=== PATIENT | male | born 1940 | race Caucasian/White ===

== ENCOUNTER 2017-11-07 16:06 | Emergency (ER) | payer MEDICARE ==
[~2017-11-07] VITALS: Ht 175.3 cm; Wt 90.0 kg
[2017-11-07 16:10] VITALS: BP 164/88; PULSE 74; RESP 16; TEMP 98.4; O2SAT 99
[2017-11-07] MEDS ORDERED: HYDR-3133 PO (16:52)
[2017-11-07] MEDS ORDERED: PLAV75TA29 PO (16:52)
[2017-11-07] MEDS ORDERED: PERM5CRE TOPICAL (17:28)
--- NOTE | 2017-11-07 17:30 | PD ---
HPI Chief Complaint: Skin Problem Time Seen by Provider: 16:53 Travel History International Travel<30 days: No Contact w/Intl Traveler<30days: No Traveled to known affect area: No History of Present Illness HPI 76y male presents to the ED with pruritic lesions to his entire body for 2 weeks. States his had similar symptoms then he started developing them on his body. He says that he has tried multiple over the counter medications and hydroxyzine without relief. Denies new soaps, medications, lotions, foods. Denies recent travel or hotel stays. Says his grandson had similar symptoms several weeks ago when his 's symptoms started and was treated with permethrin. Patient denies fever, chills. PFSH Past Medical History Cerebrovascular Accident: Yes Tetanus Vaccination: Unknown Past Surgical History Surgical History: No Previous Surgery Social History Alcohol Use: No Tobacco Use: Yes Substance Use: No Allergies-Medications (Allergen,Severity, Reaction): Coded Allergies: iodine (Verified Allergy, Severe, Hives, 11/07/17) Reported Meds & Prescriptions Reported Meds & Active Scripts Active Permethrin Topical 5% (Permethrin) 5% Cream 1 Applic TOPICAL ONCE Apply head to toe. Leave on for 8-12 hours. Rinse off in the morning. May repeat in 5-7 days. Reported Plavix (Clopidogrel Bisulfate) 75 Mg Tab 75 Mg PO DAILY Hydroxyzine HCl 25 Mg Tab 25 Mg PO BID PRN Review of Systems Except as stated in HPI: all other systems reviewed are Neg Physical Exam Narrative GENERAL: Well-developed well-nourished distress SKIN: Focused skin assessment warm/dry. Multiple papules diffusely across the body. There are excoriations without evidence of cellulitis. Multiple areas of plaques (confluence of papules) distributed across the upper extremities and trunk. Groin area deferred the request of the patient. No obvious burrows noted on hands or fingers HEAD: Atraumatic. Normocephalic. EYES: Pupils equal and round. No scleral icterus. No injection or drainage. ENT: No nasal bleeding or discharge. Mucous membranes pink and moist. NECK: Trachea midline. No JVD. MUSCULOSKELETAL: No obvious deformities. No clubbing. No cyanosis. No edema. NEUROLOGICAL: Awake and alert. No obvious cranial nerve deficits. Motor grossly within normal limits. Normal speech. PSYCHIATRIC: Appropriate mood and affect; insight and judgment normal. Data Data Last Documented VS Vital Signs Date Time Temp Pulse Resp B/P (MAP) Pulse Ox O2 Delivery O2 Flow Rate FiO2 11/07/17 17:31 11/07/17 16:10 98.4 74 16 99 Orders Orders Ed Discharge Order (11/07/17 17:30) [facility] Medical Decision Making Medical Screen Exam Complete: Yes Emergency Medical Condition: Yes Differential Diagnosis Scabies, bedbugs, cellulitis Narrative Course 76y male presents to the ED with pruritic lesions to his entire body for 2 weeks. States his had similar symptoms then he started developing them on his body. He says that he has tried multiple over the counter medications and hydroxyzine without relief. Denies new soaps, medications, lotions, foods. Denies recent travel or hotel stays. Says his grandson had similar symptoms several weeks ago when his 's symptoms started and was treated with permethrin. Patient denies fever, chills. Vital signs stable Physical exam consistent with scabies. Patient will be treated with permethrin cream. Advised patient to have the entire family treated and wash linen thoroughly. Continue hydroxyzine for pruritus. Advised patient to follow up with his primary care physician within 2-3 days. Advised to watch for signs of infection. If symptoms persist or worsen return to the emergency department. Diagnosis Primary Impression: Scabies Referrals: Primary Care Physician Additional Instructions: Ensure all members of the family are treated. Take medications as prescribed May take Benadryl or hydroxyzine for the itching and scratching. Follow-up with primary care physician within 2-3 days. If your symptoms persist or worsen return to the emergency department Scripts Permethrin Topical 5% (Permethrin Topical 5%) 5% Cream 1 APPLIC TOPICAL ONCE for Scabies, #1 TUBE 0 Refills Apply head to toe. Leave on for 8-12 hours. Rinse off in the morning. May repeat in 5-7 days. Prov: Brandon Naqvi MD 11/07/17 Disposition: 01 DISCHARGE HOME Condition: Stable Lona Calvin Nov 07, 2017 17:29
== END 2017-11-07 17:37 | disposition home or self-care (01) ==
LOC: NEPD 16:06
DX: B86 Scabies (principal); Z72.0 Tobacco use
CPT/HCPCS: 99283

== ENCOUNTER 2018-01-24 06:06 | Observation (INO) | payer MEDICARE, OTHER ==
[~2018-01-24] VITALS: Ht 175.3 cm; Wt 92.0 kg
[2018-01-24] VITALS (10 sets, daily range): BP systolic 124–173; BP diastolic 58–74; PULSE 58–109; RESP 16–20; TEMP 97.7–98.7; O2SAT 95–100
[~2018-01-24 06:06] MED LIST: HYDR-3133 PO; PERM5CRE TOPICAL; PLAV75TA29 PO
[2018-01-24] MEDS: RESP: ALBUTEROL 2.5 MG/IPRATROPIUM 0.5 MG NEB (SCH) INH (06:21)
--- NOTE | 2018-01-24 06:26 | PD ---
HPI Chief Complaint: Respiratory Distress Time Seen by Provider: 06:12 Travel History International Travel<30 days: No Contact w/Intl Traveler<30days: No Traveled to known affect area: No History of Present Illness HPI 77-year-old male with history of tobacco use, COPD, brought in by ambulance from home for evaluation of shortness of breath for 1 hour. EMS noted his saturation to be in the mid 80% on room air with moderate respiratory distress and poor air movement bilaterally. They administered 1 DuoNeb treatment and IV Solu-Medrol 125 mg, and on arrival the patient feels improved. He denies fevers , chills, cough, or recent illness. No history of DVT or PE. No chest pain. PFSH Past Medical History Cerebrovascular Accident: Yes Diminished Hearing: Yes Tetanus Vaccination: Unknown Social History Alcohol Use: No Tobacco Use: Yes Substance Use: No Allergies-Medications (Allergen,Severity, Reaction): Coded Allergies: iodine (Verified Allergy, Severe, Hives, 11/07/17) Reported Meds & Prescriptions Reported Meds & Active Scripts Active Permethrin Topical 5% (Permethrin) 5% Cream 1 Applic TOPICAL ONCE Apply head to toe. Leave on for 8-12 hours. Rinse off in the morning. May repeat in 5-7 days. Reported Plavix (Clopidogrel Bisulfate) 75 Mg Tab 75 Mg PO DAILY Hydroxyzine HCl 25 Mg Tab 25 Mg PO BID PRN Review of Systems Except as stated in HPI: all other systems reviewed are Neg Physical Exam Narrative GENERAL: Well-developed, well-nourished, elderly-appearing male, comfortable, no apparent distress. SKIN: Focused skin assessment warm/dry. HEAD: Atraumatic. Normocephalic. EYES: Pupils equal and round. No scleral icterus. No injection or drainage. ENT: Mucous membranes pink and moist. NECK: Trachea midline. No JVD. CARDIOVASCULAR: Regular rate and rhythm. No murmur appreciated. RESPIRATORY: No accessory muscle use. Clear to auscultation. Breath sounds equal bilaterally. GASTROINTESTINAL: Abdomen soft, non-tender, nondistended. MUSCULOSKELETAL: No obvious deformities. No clubbing. No cyanosis. No edema. NEUROLOGICAL: Awake and alert. No obvious cranial nerve deficits. Motor grossly within normal limits. Normal speech. PSYCHIATRIC: Appropriate mood and affect; insight and judgment normal. Data Data Last Documented VS Vital Signs Date Time Temp Pulse Resp B/P (MAP) Pulse Ox O2 Delivery O2 Flow Rate FiO2 01/24/18 06:37 101 96 Nasal Cannula 2.00 01/24/18 06:13 19 164/67 (99) 01/24/18 06:07 98.5 Orders Orders Complete Blood Count With Diff (01/24/18 06:12) Comprehensive Metabolic Panel (01/24/18 06:12) Act Partial Throm Time (Ptt) (01/24/18 06:12) Prothrombin Time / Inr (Pt) (01/24/18 06:12) Ckmb (Isoenzyme) Profile (01/24/18 06:12) Troponin I (01/24/18 06:12) Iv Access Insert/Monitor (01/24/18 06:12) Electrocardiogram (01/24/18 06:12) Ecg Monitoring (01/24/18 06:12) Oximetry (01/24/18 06:12) Oxygen Administration (01/24/18 06:12) Chest, Single Ap (01/24/18 06:12) Sodium Chloride 0.9% Flush (Ns Flush) (01/24/18 06:15) Albuterol-Ipratropium Neb (Duoneb Neb) (01/24/18 06:15) Influenzae A/B Antigen (01/24/18 06:26) Labs Laboratory Tests Test 01/24/18 06:30 White Blood Count 14.7 TH/MM3 Red Blood Count 3.44 MIL/MM3 Hemoglobin 9.5 GM/DL Hematocrit 28.4 % Mean Corpuscular Volume 82.6 FL Mean Corpuscular Hemoglobin 27.6 PG Mean Corpuscular Hemoglobin Concent 33.4 % Red Cell Distribution Width 15.5 % Platelet Count 235 TH/MM3 Mean Platelet Volume 8.9 FL Neutrophils (%) (Auto) 86.9 % Lymphocytes (%) (Auto) 6.8 % Monocytes (%) (Auto) 5.8 % Eosinophils (%) (Auto) 0.3 % Basophils (%) (Auto) 0.2 % Neutrophils # (Auto) 12.8 TH/MM3 Lymphocytes # (Auto) 1.0 TH/MM3 Monocytes # (Auto) 0.8 TH/MM3 Eosinophils # (Auto) 0.1 TH/MM3 Basophils # (Auto) 0.0 TH/MM3 CBC Comment DIFF FINAL Differential Comment MDM Medical Decision Making Medical Screen Exam Complete: Yes Emergency Medical Condition: Yes Medical Record Reviewed: Yes Differential Diagnosis COPD exacerbation, pneumonia, influenza, ACS, PE, pneumothorax Narrative Course At approximately 7:00 AM at the end of my shift the patient was signed out to oncoming provider Dr. Palm to follow-up with labs, x-ray, reassessment, and formulate a disposition. Nicho Cavazos MD Jan 24, 2018 06:26
[2018-01-24 06:45] LABS: AUTOMATED NEUTROPHIL # 12.8 TH/MM3 (1.8-7.7); BASOPHIL % 0.2 % (0.0-2.0); EOSINOPHIL # 0.1 TH/MM3 (0-0.4); EOSINOPHIL % 0.3 % (0.0-4.0); HEMATOCRIT 28.4 % (39.0-51.0); HEMOGLOBIN 9.5 GM/DL (13.0-17.0); LYMPH % 6.8 % (9.0-44.0); MEAN CELL VOLUME 82.6 FL (80.0-100.0); MEAN CORPUSCULAR HEMOGLOBIN 27.6 PG (27.0-34.0); MEAN CORPUSCULAR HGB CONC 33.4 % (32.0-36.0); MEAN PLATELET VOLUME 8.9 FL (7.0-11.0); MONO % 5.8 % (0.0-8.0); MONOCYTE # 0.8 TH/MM3 (0-0.9); NEUT % 86.9 % (16.0-70.0); PLATELET COUNT 235 TH/MM3 (150-450); RED BLOOD COUNT 3.44 MIL/MM3 (4.50-5.90); RED CELL DISTRIBUTION WIDTH 15.5 % (11.6-17.2); WHITE BLOOD COUNT 14.7 TH/MM3 (4.0-11.0)
--- NOTE | 2018-01-24 06:52 | RADRPT ---
EXAM DATE/TIME: 01/24/2018 06:23 [place] COMPARISON: No previous studies available for comparison. INDICATIONS : Shortness of breath MEDICAL HISTORY : CVA SURGICAL HISTORY : None. ENCOUNTER: Initial ACUITY: 1 day PAIN SCORE: 7/10 LOCATION: Bilateral chest FINDINGS: A single view of the chest demonstrates the lungs to be symmetrically aerated without evidence of mas s, infiltrate or effusion. No evidence of pneumothorax. The cardiomediastinal contours are unremark able. Osseous structures are intact. CONCLUSION: The lungs are clear. Yinka West MD on January 24, 2018 at 6:51 Board Certified Radiologist. This report was verified electronically.
[2018-01-24 07:05] LABS: ALBUMIN 3.8 GM/DL (3.4-5.0); ALT (GPT) 13 U/L (12-78); AST (GOT) 10 U/L (15-37); BICARBONATE 22.5 MEQ/L (21.0-32.0); BLOOD UREA NITROGEN 18 MG/DL (7-18); CALCIUM 8.5 MG/DL (8.5-10.1); CHLORIDE 109 MEQ/L (98-107); CREATININE 1.39 MG/DL (0.60-1.30); GLOMERULAR FILTRATION RATE 50 ML/MIN (>89); GLUCOSE,RANDOM 114 MG/DL (74-106); SODIUM (NA) 138 MEQ/L (136-145)
[2018-01-24 07:09] LABS: ALKALINE PHOSPHATASE 87 U/L (45-117); TOTAL BILIRUBIN ADULT 0.3 MG/DL (0.2-1.0); TOTAL PROTEIN 7.2 GM/DL (6.4-8.2); TROPONIN I LESS THAN 0.02 NG/ML (0.02-0.05)
[2018-01-24 07:18] LABS: PROTHROMBIN TIME - PATIENT 10.1 SEC (9.8-11.6)
[2018-01-24] MEDS ORDERED: CITA10TA4 PO (07:20)
[2018-01-24] MEDS ORDERED: FLUT1INH7 INH (07:20)
[2018-01-24] MEDS ORDERED: AMLO5TAB2 PO (07:20)
[2018-01-24] MEDS ORDERED: TAMS0.4C4 (07:20)
--- NOTE | 2018-01-24 07:44 | PD ---
Physical Exam Narrative Received sign out from previous team to follow up labs, CXR, and reevaluate. 77yo M with COPD and TIA here with sob that has been worst for last few days. said he woke up at 5am this morning and couldnt breathe so came to the ED. Pt was given methylprednisolone by [facility] and given duonebs x3 here. Labs reviewed, leukocytosis at 14.7. H/H low at 9.5/28.4. No baseline to compare. Troponin negative. Creatinine mildly elevated at 1.39. CXR negative. Influenza negative. Pt does not use oxygen at home. Pt reevaluated at bedside and said he still feels awful although the treatment did help. Said he has not come to the hospital for breathing problems and this is the first time. Pt is saturating well at 93% on RA. However, pt is still feeling sob so will observe with albuterol neb PRN. Discussed with Dr. Mendoza and accepted to his service. Data Data Last Documented VS Vital Signs Date Time Temp Pulse Resp B/P (MAP) Pulse Ox O2 Delivery O2 Flow Rate FiO2 01/24/18 06:37 101 96 Nasal Cannula 2.00 01/24/18 06:13 19 164/67 (99) 01/24/18 06:07 98.5 Orders Orders Complete Blood Count With Diff (01/24/18 06:12) Comprehensive Metabolic Panel (01/24/18 06:12) Act Partial Throm Time (Ptt) (01/24/18 06:12) Prothrombin Time / Inr (Pt) (01/24/18 06:12) Ckmb (Isoenzyme) Profile (01/24/18 06:12) Troponin I (01/24/18 06:12) Iv Access Insert/Monitor (01/24/18 06:12) Electrocardiogram (01/24/18 06:12) Ecg Monitoring (01/24/18 06:12) Oximetry (01/24/18 06:12) Oxygen Administration (01/24/18 06:12) Chest, Single Ap (01/24/18 06:12) Sodium Chloride 0.9% Flush (Ns Flush) (01/24/18 06:15) Albuterol-Ipratropium Neb (Duoneb Neb) (01/24/18 06:15) Influenzae A/B Antigen (01/24/18 06:26) Labs Laboratory Tests Test 01/24/18 06:30 White Blood Count 14.7 TH/MM3 Red Blood Count 3.44 MIL/MM3 Hemoglobin 9.5 GM/DL Hematocrit 28.4 % Mean Corpuscular Volume 82.6 FL Mean Corpuscular Hemoglobin 27.6 PG Mean Corpuscular Hemoglobin Concent 33.4 % Red Cell Distribution Width 15.5 % Platelet Count 235 TH/MM3 Mean Platelet Volume 8.9 FL Neutrophils (%) (Auto) 86.9 % Lymphocytes (%) (Auto) 6.8 % Monocytes (%) (Auto) 5.8 % Eosinophils (%) (Auto) 0.3 % Basophils (%) (Auto) 0.2 % Neutrophils # (Auto) 12.8 TH/MM3 Lymphocytes # (Auto) 1.0 TH/MM3 Monocytes # (Auto) 0.8 TH/MM3 Eosinophils # (Auto) 0.1 TH/MM3 Basophils # (Auto) 0.0 TH/MM3 CBC Comment DIFF FINAL Differential Comment Prothrombin Time 10.1 SEC Prothromb Time International Ratio 1.0 RATIO Activated Partial Thromboplast Time 21.2 SEC Blood Urea Nitrogen 18 MG/DL Creatinine 1.39 MG/DL Random Glucose 114 MG/DL Total Protein 7.2 GM/DL Albumin 3.8 GM/DL Calcium Level 8.5 MG/DL Alkaline Phosphatase 87 U/L Aspartate Amino Transf (AST/SGOT) 10 U/L Alanine Aminotransferase (ALT/SGPT) 13 U/L Total Bilirubin 0.3 MG/DL Sodium Level 138 MEQ/L Potassium Level 4.2 MEQ/L Chloride Level 109 MEQ/L Carbon Dioxide Level 22.5 MEQ/L Anion Gap 7 MEQ/L Estimat Glomerular Filtration Rate 50 ML/MIN Total Creatine Kinase 60 U/L Troponin I LESS THAN 0.02 NG/ML MDM Supervised Visit with YESENIA: No Diagnosis Primary Impression: COPD exacerbation Admitting Information Admitting Physician Requests: Sahra Caceres DO Jan 24, 2018 07:44
[2018-01-24] MEDS ORDERED: RESP: ALBUTEROL 1.25 MG/3 ML NEB (PRN) NEB (08:00)
[2018-01-24] MEDS: RESP: ALBUTEROL 2.5 MG/IPRATROPIUM 0.5 MG NEB (SCH) NEB ×5 (08:09→23:58)
--- NOTE | 2018-01-24 09:03 | EKG ---
Date Performed: 01/24/2018 Time Performed: 06:22:53 PTAGE: 77 years EKG: SINUS TACHYCARDIA POSSIBLE LEFT ATRIAL ENLARGEMENT ABNORMAL RHYTHM ECG NO PREVIOUS TRACING DOCTOR: Fede Prescott Interpretating Date/Time 01/24/2018 09:02:23
[2018-01-24] MEDS ORDERED: SODIUM CHLORID 0.9% 500 ML INJ 500 ML IV ONE (11:30)
--- NOTE | 2018-01-24 11:32 | HHI.HP ---
[facility] Service [facility] Primary Care Physician Daniel Patterson MD Admission Diagnosis COPD exacerbation Diagnoses: (1) COPD exacerbation Diagnosis: Principal Chief Complaint: shortness of breath Travel History International Travel<30 Days: No Contact w/Intl Traveler <30 Da: No Traveled to Known Affected Are: No History of Present Illness patient is a 77 y/o male , chronic smoker, with history of CVA, presented to ER with worsening sob. he says that he's had sob for about a month or so but it seems it's been getting worse. he denies any productive cough, fever or chills. per the ER report, his O2 sat was in mid-80's at the time of EMS arrival. he received a dose of IV solumedrol and neb treatment. at the time of my evaluation although he was feeling better but still with some sob and was on two liters of oxygen via N/C. Review of Systems Constitutional: DENIES: Fever, Weight loss, Chills, Night Sweats Eyes: DENIES: Blurred vision, Diplopia, Vision loss, Double Vision Ears, nose, mouth, throat: DENIES: Tinnitus, Vertigo, Throat pain, Epistaxis Respiratory: COMPLAINS OF: Shortness of breath, DENIES: Apneas, Cough, Snoring , Wheezing, Hemoptysis, Sputum production Cardiovascular: DENIES: Chest pain, Palpitations, Syncope, Dyspnea on Exertion , PND, Lower Extremity Edema, Orthopnea, Claudication Gastrointestinal: DENIES: Abdominal pain, Black stools, Bloody stools, Constipation, Diarrhea, Nausea, Vomiting, Difficulty Swallowing, Anorexia Genitourinary: DENIES: Urinary frequency, Urgency, Hematuria, Dysuria Musculoskeletal: DENIES: Joint pain, Muscle aches, Stiffness, Joint Swelling Integumentary: DENIES: Rash Neurologic: DENIES: Abnormal gait, Headache, Localized weakness, Paresthesias, Seizures, Speech Problems, Tremor, Poor Balance Psychiatric: DENIES: Anxiety, Confusion, Mood changes, Depression, Hallucinations, Agitation, Suicidal Ideation, Homicidal Ideation, Delusions Past Family Social History Past Medical History CVA Past Surgical History none Reported Medications Flomax norvasc breo plavix Allergies: Coded Allergies: iodine (Verified Allergy, Severe, Hives, 11/07/17) Active Ordered Medications Inpatient Medications Albuterol Sulfate (Albuterol Neb) 1.25 mg Q2HR NEB PRN NEB SHORTNESS OF BREATH ; Start 01/24/18 at 08:00 Albuterol/ Ipratropium (Duoneb Neb) 1 ampule Q4HR NEB NEB Last administered on 01/24/18at 08:09; Start 01/24/18 at 08:00 Sodium Chloride (NS Flush) 2 ml UNSCH PRN IVF FLUSH AFTER USING IV ACCESS; Start 01/24/18 at 06:15 Family History not significant. Social History smokes half a pack a day. drinks occasionally. Physical Exam Vital Signs Vital Signs Date Time Temp Pulse Resp B/P (MAP) Pulse Ox O2 Delivery O2 Flow Rate FiO2 01/24/18 10:47 97.7 100 20 128/63 (84) 99 01/24/18 10:18 01/24/18 06:37 101 96 Nasal Cannula 2.00 01/24/18 06:13 104 19 164/67 (99) 95 Nasal Cannula 2.00 01/24/18 06:13 95 Nasal Cannula 2.00 01/24/18 06:07 98.5 95 20 164/67 (99) 95 Physical Exam GENERAL: This is a well-nourished, well-developed patient, in no apparent distress. SKIN: No rashes, ecchymoses or lesions. Cool and dry. HEAD: Atraumatic. Normocephalic. No temporal or scalp tenderness. EYES: Pupils equal round and reactive. Extraocular motions intact. No scleral icterus. No injection or drainage. ENT: Nose without bleeding, purulent drainage or septal hematoma. Throat without erythema, tonsillar hypertrophy or exudate. Uvula midline. Airway patent. NECK: Trachea midline. No JVD or lymphadenopathy. Supple, nontender, no meningeal signs. CARDIOVASCULAR: Regular rate and rhythm without murmurs, gallops, or rubs. RESPIRATORY: diminished air entry in bases. GASTROINTESTINAL: Abdomen soft, non-tender, nondistended. No hepato-splenomegaly , or palpable masses. No guarding. MUSCULOSKELETAL: Extremities without clubbing, cyanosis, or edema. No joint tenderness, effusion, or edema noted. No calf tenderness. Negative Homans sign bilaterally. NEUROLOGICAL: Awake and alert. Cranial nerves II through XII intact. Motor and sensory grossly within normal limits. Five out of 5 muscle strength in all muscle groups. Normal speech. Laboratory Laboratory Tests Test 01/24/18 06:30 White Blood Count 14.7 Red Blood Count 3.44 Hemoglobin 9.5 Hematocrit 28.4 Mean Corpuscular Volume 82.6 Mean Corpuscular Hemoglobin 27.6 Mean Corpuscular Hemoglobin Concent 33.4 Red Cell Distribution Width 15.5 Platelet Count 235 Mean Platelet Volume 8.9 Neutrophils (%) (Auto) 86.9 Lymphocytes (%) (Auto) 6.8 Monocytes (%) (Auto) 5.8 Eosinophils (%) (Auto) 0.3 Basophils (%) (Auto) 0.2 Neutrophils # (Auto) 12.8 Lymphocytes # (Auto) 1.0 Monocytes # (Auto) 0.8 Eosinophils # (Auto) 0.1 Basophils # (Auto) 0.0 CBC Comment DIFF FINAL Differential Comment Prothrombin Time 10.1 Prothromb Time International Ratio 1.0 Activated Partial Thromboplast Time 21.2 Blood Urea Nitrogen 18 Creatinine 1.39 Random Glucose 114 Total Protein 7.2 Albumin 3.8 Calcium Level 8.5 Alkaline Phosphatase 87 Aspartate Amino Transf (AST/SGOT) 10 Alanine Aminotransferase (ALT/SGPT) 13 Total Bilirubin 0.3 Sodium Level 138 Potassium Level 4.2 Chloride Level 109 Carbon Dioxide Level 22.5 Anion Gap 7 Estimat Glomerular Filtration Rate 50 Total Creatine Kinase 60 Troponin I LESS THAN 0.02 Date/Time Source Procedure Growth Status 01/24/18 07:05 Nasal Washing Influenza Types A,B Antigen (JAMAL) - Final Complete Result Diagram: 01/24/1862901/24/18629 Imaging Last Impressions Chest X-Ray 01/24/18 06 Signed Impressions: Service Date/Time: Wednesday, January 24, 2018 06:23 - CONCLUSION: The lungs are clear. MD Yaneth Matson VTE Risk Assessment Yaneth VTE Risk Assessment: Mod/High Risk (score >= 2) Caprini Risk Assessment Model Point Value = 1 Point Value = 2 Point Value = 3 Point Value = 5 Age 41-60 Minor surgery BMI > 25 kg/m2 Swollen legs Varicose veins or History of unexplained or recurrent spontaneous Oral contraceptives or hormone replacement Sepsis (< 1 month) Serious lung disease, including pneumonia (< 1 month) Abnormal pulmonary function Acute myocardial infarction Congestive heart failure (< 1 month) History of inflammatory bowel disease Medical patient at bed rest Age 61-74 Arthroscopic surgery Major open surgery (> 45 min) Laparoscopic surgery (> 45 min) Malignancy Confined to bed (> 72 hours) Immobilizing plaster cast Central venous access Age >= 75 History of VTE Family history of VTE Factor V Leiden Prothrombin [id number] Lupus anticoagulant Anticardiolipin antibodies Elevated serum homocysteine Heparin-induced thrombocytopenia Other congenital or acquired thrombophilia Stroke (< 1 month) Elective arthroplasty Hip, pelvis, or leg fracture Acute spinal cord injury (< 1 month) Prophylaxis Regimen Total Risk Factor Score Risk Level Prophylaxis Regimen 0-1 Low Early ambulation 2 Moderate Order ONE of the following: *Sequential Compression Device (SCD) *Heparin 5000 units SQ BID 3-4 Higher Order ONE of the following medications: *Heparin 5000 units SQ TID *Enoxaparin/Lovenox 40 mg SQ daily (WT < 150 kg, CrCl > 30 mL/min) *Enoxaparin/Lovenox 30 mg SQ daily (WT < 150 kg, CrCl > 10-29 mL/min) *Enoxaparin/Lovenox 30 mg SQ BID (WT < 150 kg, CrCl > 30 mL/min) AND/OR *Sequential Compression Device (SCD) 5 or more Highest Order ONE of the following medications: *Heparin 5000 units SQ TID (Preferred with Epidurals) *Enoxaparin/Lovenox 40 mg SQ daily (WT < 150 kg, CrCl > 30 mL/min) *Enoxaparin/Lovenox 30 mg SQ daily (WT < 150 kg, CrCl > 10-29 mL/min) *Enoxaparin/Lovenox 30 mg SQ BID (WT < 150 kg, CrCl > 30 mL/min) AND *Sequential Compression Device (SCD) Assessment and Plan Assessment and Plan A/P - COPD exacerbation will taper down oxygen to keep O2 sat > 90%- continue with IV steroid and neb treatment. walk test before discharge. -renal insufficiency with unknown duration- strat on gentle IV hydration; BMP tomorrow. -anemia- no previous labs to compare- check iron panel and stool for blood- repeat CBC tomorrow. -hypertension/ history of CVA; resume home meds -DVT prophylaxis; SCD's Discussed Condition With ER physician and the patient. Calixto Recinos MD Jan 24, 2018 11:31
[2018-01-24] MEDS ORDERED: ACETAMINOPHEN 325 MG TAB PO PRN (11:45)
[2018-01-24] MEDS: FLUTICASONE 200 MCG/VILANTEROL 25 MCG INHALER INH SCH (12:48)
[2018-01-24] MEDS: CLOPIDOGREL 75 MG TAB PO SCH (12:49)
[2018-01-24] MEDS: amLODIPine BESYLATE 5 MG TAB PO SCH (12:49)
[2018-01-24] MEDS: CITALOPRAM HYDROBROMIDE 20 MG TAB PO SCH (12:49)
[2018-01-24] MEDS: methylPREDNISolone SOD SUCC 40 MG/1 ML VIAL IV PUSH SCH ×2 (12:49→21:52)
[2018-01-24 14:08] LABS: % SATURATION IRON PROFILE 5.9 % (20-50); FERRITIN 9 NG/ML (26-388); IRON (FE) 28 MCG/DL (65-175); TOTAL IRON BINDING CAPACITY 472 MCG/DL (250-450)
[2018-01-24] MEDS: TAMSULOSIN HCL 0.4 MG CAP PO SCH (21:53)
--- NOTE | 2018-01-24 22:56 | HHI.PR ---
Subjective Remarks NOT SEEN Objective Vitals Vital Signs Date Time Temp Pulse Resp B/P (MAP) Pulse Ox O2 Delivery O2 Flow Rate FiO2 01/24/18 20:30 135/61 (85) 01/24/18 19:46 97 Nasal Cannula 1.00 01/24/18 19:12 98.7 58 17 124/73 (90) 100 01/24/18 16:42 98.7 101 18 152/67 (95) 96 01/24/18 11:31 98.2 96 20 127/58 (81) 99 01/24/18 11:22 98 Nasal Cannula 2.00 01/24/18 10:47 97.7 100 20 128/63 (84) 99 01/24/18 10:18 01/24/18 06:37 101 96 Nasal Cannula 2.00 01/24/18 06:13 104 19 164/67 (99) 95 Nasal Cannula 2.00 01/24/18 06:13 95 Nasal Cannula 2.00 01/24/18 06:07 98.5 95 20 164/67 (99) 95 I/O 01/23/18 01/23/18 01/23/18 01/24/18 01/24/18 01/24/18 07:00 15:00 23:00 07:00 15:00 23:00 Output Total 475 ml Balance -475 ml Output Urine Total 475 ml Result Diagram: 01/24/18 0630 01/24/18 0630 Imaging Last Impressions Chest X-Ray 01/24/18 0612 Signed Impressions: Service Date/Time: Wednesday, January 24, 2018 06:23 - CONCLUSION: The lungs are clear. Yinka West MD Objective Remarks GENERAL: This is a well-nourished, well-developed patient, in no apparent distress. SKIN: No rashes, ecchymoses or lesions. Cool and dry. HEAD: Atraumatic. Normocephalic. No temporal or scalp tenderness. EYES: Pupils equal round and reactive. Extraocular motions intact. No scleral icterus. No injection or drainage. ENT: Nose without bleeding, purulent drainage or septal hematoma. Throat without erythema, tonsillar hypertrophy or exudate. Uvula midline. Airway patent. NECK: Trachea midline. No JVD or lymphadenopathy. Supple, nontender, no meningeal signs. CARDIOVASCULAR: Regular rate and rhythm without murmurs, gallops, or rubs. RESPIRATORY: diminished air entry in bases. GASTROINTESTINAL: Abdomen soft, non-tender, nondistended.No guarding. MUSCULOSKELETAL: Extremities without clubbing, cyanosis, or edema. No joint tenderness, effusion, or edema noted. No calf tenderness. Negative Homans sign bilaterally. NEUROLOGICAL: Awake and alert. Cranial nerves II through XII intact. Motor and sensory grossly within normal limits. Five out of 5 muscle strength in all muscle groups. Normal speech. A/P Problem List: (1) COPD exacerbation ICD Code: J44.1 - Chronic obstructive pulmonary disease with (acute) exacerbation Status: Acute Assessment and Plan COPD exacerbation with hypoxia will taper down oxygen to keep O2 sat > 90%- continue with IV steroid and neb treatment. walk test before discharge. RAS vs CKD with unknown duration- on gentle IV hydration; BMP to be monitored Anemia- no previous labs to compare- check iron panel and stool for blood- repeat CBC Hypertension/ history of CVA; resume home meds DVT prophylaxis; SCD's Arsenio Hoang MD Jan 24, 2018 22:56
[2018-01-25] VITALS (8 sets, daily range): BP systolic 137–160; BP diastolic 63–70; PULSE 86–97; RESP 16–22; TEMP 97.3–98.3; O2SAT 94–99
[2018-01-25] MEDS: RESP: ALBUTEROL 2.5 MG/IPRATROPIUM 0.5 MG NEB (SCH) NEB ×2 (03:56→07:18)
[2018-01-25] MEDS: methylPREDNISolone SOD SUCC 40 MG/1 ML VIAL IV PUSH SCH (05:26)
[2018-01-25 07:06] LABS: AUTOMATED NEUTROPHIL # 17.3 TH/MM3 (1.8-7.7); BASOPHIL % 0.2 % (0.0-2.0); HEMATOCRIT 28.1 % (39.0-51.0); HEMOGLOBIN 9.3 GM/DL (13.0-17.0); LYMPH % 4.1 % (9.0-44.0); LYMPHOCYTE # 0.8 TH/MM3 (1.0-4.8); MEAN CELL VOLUME 83.7 FL (80.0-100.0); MEAN CORPUSCULAR HEMOGLOBIN 27.6 PG (27.0-34.0); MEAN PLATELET VOLUME 9.5 FL (7.0-11.0); MONO % 3.1 % (0.0-8.0); MONOCYTE # 0.6 TH/MM3 (0-0.9); NEUT % 92.6 % (16.0-70.0); PLATELET COUNT 240 TH/MM3 (150-450); RED BLOOD COUNT 3.36 MIL/MM3 (4.50-5.90); WHITE BLOOD COUNT 18.7 TH/MM3 (4.0-11.0)
[2018-01-25 07:41] LABS: BICARBONATE 19.5 MEQ/L (21.0-32.0); CALCIUM 9.1 MG/DL (8.5-10.1); CREATININE 1.6 MG/DL (0.60-1.30); MAGNESIUM 2.2 MG/DL (1.5-2.5)
[2018-01-25] MEDS: amLODIPine BESYLATE 5 MG TAB PO SCH (08:35)
[2018-01-25] MEDS: CITALOPRAM HYDROBROMIDE 20 MG TAB PO SCH (08:36)
[2018-01-25] MEDS: SODIUM CHLORIDE 0.9% FLUSH 10 ML FLUSH IVF PRN (08:36)
[2018-01-25] MEDS: CLOPIDOGREL 75 MG TAB PO SCH (08:36)
[2018-01-25] MEDS ORDERED: LEVOFLOXACIN 750 MG PREMIX INJ 150 ML IV SCH (09:00)
[2018-01-25] MEDS: FLUTICASONE 200 MCG/VILANTEROL 25 MCG INHALER INH SCH (10:59)
--- NOTE | 2018-01-25 12:40 | HHI.PR ---
Subjective Remarks Follow-up COPD. Improving but still with significant dyspnea on exertion. Reports of tremors. Discussed with nursing Objective Vitals Vital Signs Date Time Temp Pulse Resp B/P (MAP) Pulse Ox O2 Delivery O2 Flow Rate FiO2 01/25/18 11:22 97.7 91 16 137/63 (87) 97 01/25/18 07:20 Nasal Cannula 1.00 01/25/18 07:13 97.5 87 20 154/69 (97) 99 01/25/18 04:17 97.3 90 16 143/64 (90) 97 01/25/18 00:06 97.6 97 16 148/66 (93) 98 01/24/18 20:30 135/61 (85) 01/24/18 19:46 97 Nasal Cannula 1.00 01/24/18 19:12 98.7 58 17 124/73 (90) 100 01/24/18 16:42 98.7 101 18 152/67 (95) 96 I/O 01/24/18 01/24/18 01/24/18 01/25/18 01/25/18 01/25/18 07:00 15:00 23:00 07:00 15:00 23:00 Output Total 475 ml Balance -475 ml Output Urine Total 475 ml Result Diagram: 01/25/18 0553 01/25/18 0553 Imaging Last Impressions Chest X-Ray 01/24/18 0612 Signed Impressions: Service Date/Time: Wednesday, January 24, 2018 06:23 - CONCLUSION: The lungs are clear. Yinka West MD Objective Remarks GENERAL: This is a well-nourished, well-developed patient, in no apparent distress. SKIN: No rashes, ecchymoses or lesions. Cool and dry. CARDIOVASCULAR: Regular rate and rhythm without murmurs, gallops, or rubs. RESPIRATORY: diminished air entry in bases. GASTROINTESTINAL: Abdomen soft, non-tender, nondistended.No guarding. MUSCULOSKELETAL: Extremities without clubbing, cyanosis, or edema. No joint tenderness, effusion, or edema noted. No calf tenderness. Negative Homans sign bilaterally. NEUROLOGICAL: Awake and alert. Cranial nerves II through XII intact. Motor and sensory grossly within normal limits. Five out of 5 muscle strength in all muscle groups. Normal speech. Tremors noted Procedures none A/P Problem List: (1) COPD exacerbation ICD Code: J44.1 - Chronic obstructive pulmonary disease with (acute) exacerbation Status: Acute Assessment and Plan COPD exacerbation with hypoxia. Improving but still with significant dyspnea on exertion. Continue oxygen, nebulization, steroids and start Levaquin. Increase activity as tolerated. Walk test. Tremors likely secondary to adverse reaction from beta agonist. Discontinue scheduled albuterol nebulization. Continue Atrovent nebulization RAS vs CKD with unknown duration. Worsening in this is likely secondary to steroids with acidosis. Restart gentle IV hydration BMP to be monitored Anemia- no previous labs to compare-has iron deficiency anemia repeat CBC and Hemoccult stools. This could be related to kidney disease versus occult blood loss. Hypertension/ history of CVA; resume home meds DVT prophylaxis; SCD's Discharge Planning Possible discharge in 1-2 days pending PT eval and walk test Arsenio Hoang MD Jan 25, 2018 12:40
[2018-01-25] MEDS ORDERED: RESP: ALBUTEROL 0.63 MG/3 ML NEB (PRN) NEB (15:45)
[2018-01-25] MEDS ORDERED: SODIUM CHLOR 0.9% 1000 ML INJ 1,000 ML IV SCH (16:00)
[2018-01-25] MEDS ORDERED: RESP: ALBUTEROL 0.63 MG/3 ML NEB (SCH) NEB (16:00)
[2018-01-25] MEDS: predniSONE 20 MG TAB PO SCH (16:08)
[2018-01-25] MEDS: RESP: IPRATROPIUM 0.5 MG/2.5 ML NEB NEB SCH ×2 (16:28→20:00)
[2018-01-25] MEDS ORDERED: methylPREDNISolone SOD SUCC 40 MG/1 ML VIAL IV PUSH SCH (18:00)
[2018-01-25] MEDS: TAMSULOSIN HCL 0.4 MG CAP PO SCH (20:29)
[2018-01-26] VITALS (8 sets, daily range): BP systolic 153–169; BP diastolic 69–79; PULSE 69–83; RESP 16–20; TEMP 97.5–98.1; O2SAT 95–98
[2018-01-26] MEDS: RESP: IPRATROPIUM 0.5 MG/2.5 ML NEB NEB SCH ×4 (03:25→21:46)
[2018-01-26] MEDS: RESP: ALBUTEROL 2.5 MG/IPRATROPIUM 0.5 MG NEB (SCH) NEB (07:32)
[2018-01-26] MEDS: CITALOPRAM HYDROBROMIDE 20 MG TAB PO SCH (10:06)
[2018-01-26] MEDS: predniSONE 20 MG TAB PO SCH (10:06)
[2018-01-26] MEDS: FLUTICASONE 200 MCG/VILANTEROL 25 MCG INHALER INH SCH (10:06)
[2018-01-26] MEDS: CLOPIDOGREL 75 MG TAB PO SCH (10:07)
[2018-01-26] MEDS: amLODIPine BESYLATE 5 MG TAB PO SCH (10:07)
[2018-01-26] MEDS ORDERED: SENNOSIDES 8.6 MG TAB PO PRN (11:00)
[2018-01-26] MEDS ORDERED: BISACODYL 10 MG SUPP RECTAL PRN (11:00)
[2018-01-26] MEDS ORDERED: MAGNESIUM HYDROXIDE SUSP 30 ML CUP PO PRN (11:00)
[2018-01-26] MEDS ORDERED: FLUT1INH7 INH (11:04)
[2018-01-26] MEDS ORDERED: PRED20 PO (11:04)
[2018-01-26] MEDS ORDERED: LEVA750T9 PO (11:04)
[2018-01-26] MEDS: DOCUSATE SODIUM 50 MG/SENNA 8.6 MG TAB PO SCH ×2 (12:20→21:00)
[2018-01-26] MEDS ORDERED: NEBULIZER1 MI1 (13:26)
[2018-01-26] MEDS ORDERED: Ipratropium Bromide NEB (13:28)
[2018-01-26] MEDS ORDERED: ALBU0.63 NEB (13:28)
--- NOTE | 2018-01-26 13:29 | HHI.DCPOC ---
Discharge Care Plan Diagnosis: (1) COPD exacerbation Goals to Promote Your Health * To prevent worsening of your condition and complications * To maintain your health at the optimal level Directions to Meet Your Goals Take your medications as prescribed Follow your dietary instruction Follow activity as directed Keep your appointments as scheduled Take your immunizations and boosters as scheduled If your symptoms worsen call your PCP, if no PCP go to Urgent Care Center or Emergency Room Smoking is Dangerous to Your Health. Avoid second hand smoke Call the 24-hour hour crisis hotline for domestic abuse at Vicki Johnson PA-C Jan 26, 2018 13:29
[2018-01-26] MEDS ORDERED: VENTAER INH (13:32)
--- NOTE | 2018-01-26 13:57 | HHI.PR ---
Objective Vitals Vital Signs Date Time Temp Pulse Resp B/P (MAP) Pulse Ox O2 Delivery O2 Flow Rate FiO2 01/26/18 11:32 97.7 76 16 155/73 (100) 97 01/26/18 08:34 97.7 71 16 168/79 (108) 97 01/26/18 07:34 98 21 01/26/18 04:43 97.5 69 16 153/69 (97) 97 01/26/18 00:53 97.9 83 20 162/69 (100) 95 01/25/18 22:19 98.3 86 16 149/66 (93) 95 01/25/18 20:34 97.9 88 16 160/70 (100) 96 01/25/18 20:04 96 21.00 01/25/18 15:03 97.9 88 22 148/70 (96) 94 I/O 01/25/18 01/25/18 01/25/18 01/26/18 01/26/18 01/26/18 07:00 15:00 23:00 07:00 15:00 23:00 Intake Total 600 ml 500 ml Output Total 600 ml Balance 0 ml 500 ml Intake Oral 600 ml 500 ml Output Urine Total 600 ml Result Diagram: 01/25/18 0553 01/25/18 0553 Objective Remarks GENERAL: This is a well-nourished, well-developed patient, in no apparent distress. SKIN: No rashes, ecchymoses or lesions. Cool and dry. CARDIOVASCULAR: Regular rate and rhythm without murmurs, gallops, or rubs. RESPIRATORY: diminished air entry in bases. GASTROINTESTINAL: Abdomen soft, non-tender, nondistended.No guarding. MUSCULOSKELETAL: Extremities without clubbing, cyanosis, or edema. No joint tenderness, effusion, or edema noted. No calf tenderness. Negative Homans sign bilaterally. NEUROLOGICAL: Awake and alert. Cranial nerves II through XII intact. Motor and sensory grossly within normal limits. Five out of 5 muscle strength in all muscle groups. Normal speech. Tremors noted Procedures none A/P Problem List: (1) COPD exacerbation ICD Code: J44.1 - Chronic obstructive pulmonary disease with (acute) exacerbation Status: Acute Assessment and Plan COPD exacerbation with hypoxia. Improving but still with significant dyspnea on exertion. Continue oxygen, nebulization, steroids and start Levaquin. Increase activity as tolerated. Walk test. Tremors likely secondary to adverse reaction from beta agonist. Discontinue scheduled albuterol nebulization. Continue Atrovent nebulization RAS vs CKD with unknown duration. Worsening in this is likely secondary to steroids with acidosis. Restart gentle IV hydration BMP to be monitored Anemia- no previous labs to compare-has iron deficiency anemia repeat CBC and Hemoccult stools. This could be related to kidney disease versus occult blood loss. Hypertension/ history of CVA; resume home meds DVT prophylaxis; SCD's Discharge Planning Possible discharge in 1-2 days pending PT eval and walk test Arsenio Hoang MD Jan 26, 2018 13:57
[2018-01-26 14:34] LABS: HEMATOCRIT 27.8 % (39.0-51.0)
[2018-01-26 15:17] LABS: BICARBONATE 24.2 MEQ/L (21.0-32.0); CALCIUM 8.7 MG/DL (8.5-10.1); CREATININE 1.28 MG/DL (0.60-1.30); MAGNESIUM 2.5 MG/DL (1.5-2.5)
--- NOTE | 2018-01-26 17:42 | HHI.DS ---
Discharge Summary Admission Date Jan 24, 2018 at 08:01 Discharge Date: Jan 27, 2018 Admitting Diagnosis COPD exacerbation (1) COPD exacerbation ICD Code: J44.1 - Chronic obstructive pulmonary disease with (acute) exacerbation Diagnosis: Principal Status: Acute Procedures none Brief History - From Admission patient is a 77 y/o male , chronic smoker, with history of CVA, presented to ER with worsening sob. he says that he's had sob for about a month or so but it seems it's been getting worse. he denies any productive cough, fever or chills. per the ER report, his O2 sat was in mid-80's at the time of EMS arrival. he received a dose of IV solumedrol and neb treatment. at the time of my evaluation although he was feeling better but still with some sob and was on two liters of oxygen via N/C. CBC/BMP: 01/26/18 1410 01/26/18 1410 Significant Findings Laboratory Tests Test 01/24/18 06:30 01/25/18 05:53 01/26/18 14:10 White Blood Count 14.7 TH/MM3 (4.0-11.0) 18.7 TH/MM3 (4.0-11.0) Red Blood Count 3.44 MIL/MM3 (4.50-5.90) 3.36 MIL/MM3 (4.50-5.90) Hemoglobin 9.5 GM/DL (13.0-17.0) 9.3 GM/DL (13.0-17.0) 9.0 GM/DL (13.0-17.0) Hematocrit 28.4 % (39.0-51.0) 28.1 % (39.0-51.0) 27.8 % (39.0-51.0) Neutrophils (%) (Auto) 86.9 % (16.0-70.0) 92.6 % (16.0-70.0) Lymphocytes (%) (Auto) 6.8 % (9.0-44.0) 4.1 % (9.0-44.0) Neutrophils # (Auto) 12.8 TH/MM3 (1.8-7.7) 17.3 TH/MM3 (1.8-7.7) Activated Partial Thromboplast Time 21.2 SEC (24.3-30.1) Creatinine 1.39 MG/DL (0.60-1.30) 1.60 MG/DL (0.60-1.30) Random Glucose 114 MG/DL (74-106) 146 MG/DL (74-106) 117 MG/DL (74-106) Aspartate Amino Transf (AST/SGOT) 10 U/L (15-37) Chloride Level 109 MEQ/L (98-107) 108 MEQ/L (98-107) 108 MEQ/L (98-107) Estimat Glomerular Filtration Rate 50 ML/MIN (>89) 42 ML/MIN (>89) 55 ML/MIN (>89) Iron Level 28 MCG/DL (65-175) Total Iron Binding Capacity 472 MCG/DL (250-450) Percent Iron Saturation 5.9 % (20-50) Ferritin 9 NG/ML (26-388) Troponin I LESS THAN 0.02 NG/ML Lymphocytes # (Auto) 0.8 TH/MM3 (1.0-4.8) Blood Urea Nitrogen 30 MG/DL (7-18) 32 MG/DL (7-18) Carbon Dioxide Level 19.5 MEQ/L (21.0-32.0) Imaging Last Impressions Chest X-Ray 01/24/18 0612 Signed Impressions: Service Date/Time: Wednesday, January 24, 2018 06:23 - CONCLUSION: The lungs are clear. Yinka West MD PE at Discharge GENERAL: This is a well-nourished, well-developed patient, in no apparent distress. SKIN: No rashes, ecchymoses or lesions. Cool and dry. CARDIOVASCULAR: Regular rate and rhythm without murmurs, gallops, or rubs. RESPIRATORY: diminished air entry in bases. GASTROINTESTINAL: Abdomen soft, non-tender, nondistended.No guarding. MUSCULOSKELETAL: Extremities without clubbing, cyanosis, or edema. No joint tenderness, effusion, or edema noted. No calf tenderness. Negative Homans sign bilaterally. NEUROLOGICAL: Awake and alert. Cranial nerves II through XII intact. Motor and sensory grossly within normal limits. Five out of 5 muscle strength in all muscle groups. Normal speech. Tremors resolved Hospital Course COPD exacerbation with hypoxia. Improving. One episode of sputum admixed with small amount of dark blood. Continue oxygen prn, nebulization, steroids and Levaquin. Increase activity as tolerated. Passed Walk test. Tremors likely secondary to adverse reaction from beta agonist. Discontinued scheduled albuterol nebulization. Resolved. Continue Atrovent nebulization RAS. Improved with gentle IV hydration BMP to be monitored Anemia- no previous labs to compare-has iron deficiency anemia. This could be related to kidney disease versus occult blood loss. Stable but + guaiac. No gross active bleeding. Patient wants to go home and will f/u with GI for cscope outpatient. Start iron Hypertension/ history of CVA; BP elevated likely secondary to steroids we will increase Norvasc DVT prophylaxis; SCD's Pt Condition on Discharge: Stable Discharge Disposition: Discharge Home Discharge Time: > 30 minutes Discharge Instructions DIET: Follow Instructions for: Heart Healthy Diet Speech Therapy-Diet Recommends: Chopped Meat w/Gravy Activities you can perform: Regular-No Restrictions Follow up Referrals: Gastroenterology - 1 Week PCP Follow-up - 1 Week with Daneil Patterson MD New Orders: BASIC METABOLIC PROF - 1 Week CBC NO DIFF - 1 Week New Medications: Albuterol 18 GM Inh (Ventolin Hfa 18 GM Inh) 90 Mcg/Act Aer 2 PUFF INH Q4-6H PRN for SHORTNESS OF BREATH, #1 INHALER 0 Refills Amlodipine (Norvasc) 10 Mg Tab 10 MG PO DAILY for Blood Pressure Management, #30 TAB 0 Refills Ferrous Sulfate (Ferrous Sulfate) 325 Mg (65 Mg Iron) Tablet 325 MG PO BIDPC for Nutritional Supplement, #60 TAB 0 Refills Nebulizer (Nebulizer) 1 Mis Mis EA .XX DIRECTED for Breathing Treatment, #1 0 Refills Albuterol Neb (Albuterol Neb) 0.63 Mg/3 Ml Neb 0.63 MG NEB Q6HR NEB PRN for SHORTNESS OF BREATH, #100 NEBULE Levofloxacin (Levaquin) 750 Mg Tablet 750 MG PO Q48H for Infection, #3 TAB Start on 01/27. Take every other day. Prednisone (Prednisone) 20 Mg Tab 40 MG PO DAILY for COPD for 5 Days, #10 TAB [Ipratropium [place]] () 0.5 MG/2.5 ML NEBU 0.5 MG NEB Q6HR NEB for COPD, #120 NEBULE Continued Medications: Citalopram (Citalopram) 10 Mg Tab 10 MG PO DAILY for Control Depression, #30 TAB 0 Refills Clopidogrel (Plavix) 75 Mg Tab 75 MG PO DAILY for Blood Clot Prevention, #30 TAB 0 Refills Fluticasone-Vilanterol Inh (Breo Ellipta Inh) 200-25 Mcg/Act Inh 1 PUFF INH DAILY for COPD, #1 INHALER 0 Refills (This prescription has been renewed) Use daily at the same time. Tamsulosin (Tamsulosin) 0.4 Mg Cap 0.4 MG HS for Manage Prostate Problems, #30 CAP 0 Refills Discontinued Medications: Amlodipine (Amlodipine) 5 Mg Tab 5 MG PO DAILY for Blood Pressure Management, #30 TAB 0 Refills Arsenio Hoang MD Jan 26, 2018 17:42
[2018-01-26] MEDS: TAMSULOSIN HCL 0.4 MG CAP PO SCH (21:00)
[2018-01-27 00:34] VITALS: BP 164/78; PULSE 76; RESP 16; TEMP 97.7; O2SAT 96
[2018-01-27 03:20] VITALS: BP 164/77; PULSE 77; RESP 20; TEMP 97.9; O2SAT 96
[2018-01-27] MEDS: RESP: IPRATROPIUM 0.5 MG/2.5 ML NEB NEB SCH ×2 (03:44→11:42)
[2018-01-27 08:18] VITALS: BP 181/85; PULSE 76; RESP 20; TEMP 97.7; O2SAT 97
[2018-01-27] MEDS: FLUTICASONE 200 MCG/VILANTEROL 25 MCG INHALER INH SCH (08:41)
[2018-01-27] MEDS: predniSONE 20 MG TAB PO SCH (08:41)
[2018-01-27] MEDS: CLOPIDOGREL 75 MG TAB PO SCH (08:41)
[2018-01-27] MEDS: DOCUSATE SODIUM 50 MG/SENNA 8.6 MG TAB PO SCH (08:41)
--- NOTE | 2018-01-27 08:41 | HHI.PR ---
Subjective Remarks Follow-up COPD. Late entry patient seen yesterday for COPD exacerbation. Improving shortness of breath. Objective Vitals Vital Signs Date Time Temp Pulse Resp B/P (MAP) Pulse Ox O2 Delivery O2 Flow Rate FiO2 01/27/18 08:18 97.7 76 20 181/85 (117) 97 01/27/18 03:20 97.9 77 20 164/77 (106) 96 01/27/18 00:34 97.7 76 16 164/78 (106) 96 01/26/18 21:48 96 21 01/26/18 19:32 98.0 81 20 169/76 (107) 96 01/26/18 14:47 98.1 79 18 169/76 (107) 97 01/26/18 11:32 97.7 76 16 155/73 (100) 97 I/O 01/26/18 01/26/18 01/26/18 01/27/18 01/27/18 01/27/18 07:00 15:00 23:00 07:00 15:00 23:00 Intake Total 500 ml 1000 ml Balance 500 ml 1000 ml Intake Oral 500 ml 1000 ml Result Diagram: 01/26/18 1410 01/26/18 1410 Objective Remarks GENERAL: This is a well-nourished, well-developed patient, in no apparent distress. SKIN: No rashes, ecchymoses or lesions. Cool and dry. CARDIOVASCULAR: Regular rate and rhythm without murmurs, gallops, or rubs. RESPIRATORY: diminished air entry in bases. GASTROINTESTINAL: Abdomen soft, non-tender, nondistended.No guarding. MUSCULOSKELETAL: Extremities without clubbing, cyanosis, or edema. No joint tenderness, effusion, or edema noted. No calf tenderness. Negative Homans sign bilaterally. NEUROLOGICAL: Awake and alert. Cranial nerves II through XII intact. Motor and sensory grossly within normal limits. Five out of 5 muscle strength in all muscle groups. Normal speech. Tremors resolved Procedures none A/P Problem List: (1) COPD exacerbation ICD Code: J44.1 - Chronic obstructive pulmonary disease with (acute) exacerbation Status: Acute Assessment and Plan COPD exacerbation with hypoxia. Improving. One episode of sputum admixed with small amount of dark blood. Continue oxygen prn, nebulization, steroids and Levaquin. Increase activity as tolerated. Passed Walk test. Tremors likely secondary to adverse reaction from beta agonist. Discontinued scheduled albuterol nebulization. Resolved. Continue Atrovent nebulization RAS vs CKD with unknown duration. Improved with gentle IV hydration BMP to be monitored Anemia- no previous labs to compare-has iron deficiency anemia repeat CBC and Hemoccult stools. This could be related to kidney disease versus occult blood loss. Stable pending guaiac. Op f/u with GI for cscope Hypertension/ history of CVA; resume home meds DVT prophylaxis; SCD's Discharge Planning Possible discharge in 1-2 days pending PT eval and walk test Arsenio Hoang MD Jan 27, 2018 08:41
[2018-01-27] MEDS: SODIUM CHLORIDE 0.9% FLUSH 10 ML FLUSH IVF PRN (08:42)
[2018-01-27] MEDS: CITALOPRAM HYDROBROMIDE 20 MG TAB PO SCH (08:42)
[2018-01-27] MEDS: amLODIPine BESYLATE 5 MG TAB PO SCH (08:42)
--- NOTE | 2018-01-27 08:43 | HHI.PR ---
Subjective Remarks Follow-up anemia. Discharge held yesterday secondary to guaiac positive stool. Denies dizziness. Wants to go home will f/u with GI for endoscopy Objective Vitals Vital Signs Date Time Temp Pulse Resp B/P (MAP) Pulse Ox O2 Delivery O2 Flow Rate FiO2 01/27/18 08:18 97.7 76 20 181/85 (117) 97 01/27/18 03:20 97.9 77 20 164/77 (106) 96 01/27/18 00:34 97.7 76 16 164/78 (106) 96 01/26/18 21:48 96 21 01/26/18 19:32 98.0 81 20 169/76 (107) 96 01/26/18 14:47 98.1 79 18 169/76 (107) 97 01/26/18 11:32 97.7 76 16 155/73 (100) 97 I/O 01/26/18 01/26/18 01/26/18 01/27/18 01/27/18 01/27/18 07:00 15:00 23:00 07:00 15:00 23:00 Intake Total 500 ml 1000 ml Balance 500 ml 1000 ml Intake Oral 500 ml 1000 ml Result Diagram: 01/26/18 1410 01/26/18 1410 Imaging Last Impressions Chest X-Ray 01/24/18 0612 Signed Impressions: Service Date/Time: Wednesday, January 24, 2018 06:23 - CONCLUSION: The lungs are clear. Yinka West MD Objective Remarks GENERAL: This is a well-nourished, well-developed patient, in no apparent distress. SKIN: No rashes, ecchymoses or lesions. Cool and dry. CARDIOVASCULAR: Regular rate and rhythm without murmurs, gallops, or rubs. RESPIRATORY: diminished air entry in bases. GASTROINTESTINAL: Abdomen soft, non-tender, nondistended.No guarding. MUSCULOSKELETAL: Extremities without clubbing, cyanosis, or edema. No joint tenderness, effusion, or edema noted. No calf tenderness. Negative Homans sign bilaterally. NEUROLOGICAL: Awake and alert. Cranial nerves II through XII intact. Motor and sensory grossly within normal limits. Five out of 5 muscle strength in all muscle groups. Normal speech. Tremors resolved Procedures none A/P Problem List: (1) COPD exacerbation ICD Code: J44.1 - Chronic obstructive pulmonary disease with (acute) exacerbation Status: Acute Assessment and Plan COPD exacerbation with hypoxia. Improving. One episode of sputum admixed with small amount of dark blood. Continue oxygen prn, nebulization, steroids and Levaquin. Increase activity as tolerated. Passed Walk test. Tremors likely secondary to adverse reaction from beta agonist. Discontinued scheduled albuterol nebulization. Resolved. Continue Atrovent nebulization RAS. Improved with gentle IV hydration BMP to be monitored Anemia- no previous labs to compare-has iron deficiency anemia. This could be related to kidney disease versus occult blood loss. Stable but + guaiac. No gross active bleeding. Patient wants to go home and will f/u with GI for cscope outpatient. Start iron Hypertension/ history of CVA; BP elevated likely secondary to steroids we will increase Norvasc DVT prophylaxis; SCD's Discharge Planning Stable for discharge Arsenio Hoang MD Jan 27, 2018 08:43
[2018-01-27 10:28] VITALS: BP 173/80; PULSE 67; RESP 20; O2SAT 97
[2018-01-27 10:56] LABS: HEMOGLOBIN 9.3 GM/DL (13.0-17.0)
[2018-01-27] MEDS ORDERED: AMLO10 PO (11:23)
[2018-01-27] MEDS ORDERED: amLODIPine BESYLATE 5 MG TAB PO ONE (11:30)
[2018-01-27 11:44] VITALS: O2SAT 99
[2018-01-27 12:03] VITALS: BP 164/75
[2018-01-27] MEDS ORDERED: FERR325T18 PO (14:09)
[2018-01-27] MEDS ORDERED: LEVOFLOXACIN 750 MG TAB PO SCH (15:00)
== END 2018-01-27 13:54 | disposition home or self-care (01) ==
LOC: NEPC 06:06 → NEDA 08:01 → NEPFCDU 10:22 → NEPGCP 17:25
PROVIDERS: ADMIT Internal Medicine; ATTEND Internal Medicine
DX: J44.1 Chronic obstructive pulmonary disease with (acute) exacerbation (principal); R06.03 Acute respiratory distress; R09.02 Hypoxemia; D64.9 Anemia, unspecified; I10 Essential (primary) hypertension; R00.0 Tachycardia, unspecified; D72.829 Elevated white blood cell count, unspecified; R79.89 Other specified abnormal findings of blood chemistry; H91.90 Unspecified hearing loss, unspecified ear; F17.200 Nicotine dependence, unspecified, uncomplicated; Z79.02 Long term (current) use of antithrombotics/antiplatelets; Z86.73 Personal history of transient ischemic attack (TIA), and cerebral infarction without residual deficits
CPT/HCPCS: 71045; 80048; 80053; 82272; 82550; 82728; 83540; 83550; 83735; 84484; 85014; 85018; 85025; 85610; 85730; 87804; 93005; 94640; 94664; 96361; 96365; 96366; 96375; 96376; 97161; 99285; G0378; G8987; G8988; J1956; J2920; J7030; J7040; J7512; J7613; J7644

== ENCOUNTER 2018-05-01 03:41 | Inpatient (IN) | payer MEDICARE, OTHER ==
[2018-05-01] VITALS (17 sets, daily range): BP systolic 126–209; BP diastolic 69–88; PULSE 58–102; RESP 16–20; TEMP 97–98.8; O2SAT 92–100
[~2018-05-01] VITALS: Ht 175.3 cm; Wt 127.9 kg
[~2018-05-01 03:41] MED LIST changes: +ALBU0.63 NEB; +AMLO10 PO; +CITA10TA4 PO; +FERR325T18 PO; +FLUT1INH7 INH; -HYDR-3133 PO; +Ipratropium Bromide NEB; +LEVA750T9 PO; +NEBULIZER1 MI1; -PERM5CRE TOPICAL; +PRED20 PO; +TAMS0.4C4; +VENTAER INH
[2018-05-01] MEDS ORDERED: methylPREDNISolone SOD SUCC 125 MG/2 ML VIAL IV PUSH ONE (04:00)
[2018-05-01] MEDS ORDERED: OMEGCAP PO (04:03)
[2018-05-01] MEDS ORDERED: hydrALAZINE HCL 20 MG/ML VIAL IV PUSH ONE (04:15)
[2018-05-01] MEDS: RESP: ALBUTEROL 2.5 MG/IPRATROPIUM 0.5 MG NEB (SCH) INH ×2 (04:19→04:20)
--- NOTE | 2018-05-01 04:37 | RADRPT ---
EXAM DATE: 05/01/2018 4:11 AM EDT AGE/SEX: 77 years / Male INDICATIONS: Shortness of breath. CLINICAL DATA: This is the patient's initial encounter. Patient reports that signs and symptoms have been present for 1 day and indicates a pain score of 0/10. MEDICAL/SURGICAL HISTORY: Chronic obstructive pulmonary disease. Hypertension. None. COMPARISON: [facility] – [place], CHEST SINGLE AP, 01/24/2018. . FINDINGS: A single AP view of the chest demonstrates the lungs to be symmetrically aerated without evidence of mass, infiltrate or effusion. Minimal basilar atelectasis. The cardiomediastinal contours are unremarkable. Osseous structures are intact. CONCLUSION: Minimal basilar atelectasis. No dense consolidation or pleural effusion. Electronically signed by: Yann Mariano MD 05/01/2018 4:35 AM EDT
[2018-05-01 04:42] LABS: BICARBONATE 22.1 MEQ/L (21.0-32.0); BLOOD UREA NITROGEN 24 MG/DL (7-18); CALCIUM 8.8 MG/DL (8.5-10.1); CHLORIDE 113 MEQ/L (98-107); CREATININE 1.31 MG/DL (0.60-1.30); GLOMERULAR FILTRATION RATE 53 ML/MIN (>89); GLUCOSE,RANDOM 94 MG/DL (74-106); MAGNESIUM 2.3 MG/DL (1.5-2.5); SODIUM (NA) 144 MEQ/L (136-145)
[2018-05-01 04:44] LABS: AUTOMATED NEUTROPHIL # 6.4 TH/MM3 (1.8-7.7); BASOPHIL # 0.1 TH/MM3 (0-0.2); BASOPHIL % 0.7 % (0.0-2.0); EOSINOPHIL # 0.4 TH/MM3 (0-0.4); EOSINOPHIL % 4.1 % (0.0-4.0); HEMATOCRIT 22.6 % (39.0-51.0); LYMPH % 15.9 % (9.0-44.0); LYMPHOCYTE # 1.4 TH/MM3 (1.0-4.8); MEAN CELL VOLUME 67.7 FL (80.0-100.0); MEAN CORPUSCULAR HEMOGLOBIN 20.5 PG (27.0-34.0); MEAN CORPUSCULAR HGB CONC 30.3 % (32.0-36.0); MEAN PLATELET VOLUME 9.1 FL (7.0-11.0); MONO % 7.5 % (0.0-8.0); MONOCYTE # 0.7 TH/MM3 (0-0.9); NEUT % 71.8 % (16.0-70.0); PLATELET COUNT 218 TH/MM3 (150-450); RED BLOOD COUNT 3.34 MIL/MM3 (4.50-5.90); RED CELL DISTRIBUTION WIDTH 17.9 % (11.6-17.2); WHITE BLOOD COUNT 8.9 TH/MM3 (4.0-11.0)
[2018-05-01 04:46] LABS: TROPONIN I LESS THAN 0.02 NG/ML (0.02-0.05)
[2018-05-01 04:48] LABS: HEMOGLOBIN 6.8 GM/DL (13.0-17.0)
[2018-05-01] MEDS ORDERED: SODIUM CHLOR 0.9% 250 ML INJ 250 ML IV ONE ×2 (05:15→11:45)
[2018-05-01] MEDS ORDERED: PANTOPRAZOLE SODIUM 40 MG VIAL IV PUSH ONE (05:15)
--- NOTE | 2018-05-01 05:21 | PD ---
HPI Chief Complaint: Respiratory Distress Time Seen by Provider: 03:49 Travel History International Travel<30 days: No Contact w/Intl Traveler<30days: No Traveled to known affect area: No History of Present Illness HPI 77yo M with PMH of COPD and CVA here with c/o sob for a few days. said he has been having generalized fatigue for a week. +Cough. Uses oxygen at home. Denies any fever, chest pain, n/v, abdominal pain, focal weakness or numbness. PFSH Past Medical History Blood Disorders: No Cancer: No Cardiovascular Problems: No COPD: Yes Cerebrovascular Accident: Yes Diabetes: No Diminished Hearing: Yes Endocrine: No Genitourinary: No Immune Disorder: No Musculoskeletal: No Neurologic: No Psychiatric: No Respiratory: Yes Past Surgical History Other Surgery: No Social History Alcohol Use: No Tobacco Use: No Substance Use: No Allergies-Medications (Allergen,Severity, Reaction): Coded Allergies: iodine (Verified Allergy, Severe, Hives, 11/07/17) Reported Meds & Prescriptions Reported Meds & Active Scripts Active Norvasc (Amlodipine Besylate) 10 Mg Tab 10 Mg PO DAILY Ventolin Hfa 18 GM Inh (Albuterol Sulfate) 90 Mcg/Act Aer 2 Puff INH Q4-6H PRN Albuterol Neb (Albuterol Sulfate) 0.63 Mg/3 Ml Neb 0.63 Mg NEB Q6HR NEB PRN Nebulizer 1 Mis Mis Ea .XX DIRECTED Prednisone 20 Mg Tab 40 Mg PO DAILY 5 Days Breo Ellipta Inh (Fluticasone/Vilanterol) 200-25 Mcg/Act Inh 1 Puff INH DAILY Use daily at the same time. Reported [place]-3 Fish Oil/Vitamin (Fish Oil-Cholecalciferol) 1,000-1,000 Mg Cap 1 Cap PO DAILY Tamsulosin (Tamsulosin HCl) 0.4 Mg Cap 0.4 Mg HS Citalopram (Citalopram Hydrobromide) 10 Mg Tab 10 Mg PO DAILY Plavix (Clopidogrel Bisulfate) 75 Mg Tab 75 Mg PO DAILY Review of Systems Except as stated in HPI: all other systems reviewed are Neg Physical Exam Narrative GENERAL: 77yo M in mild distress. SKIN: Focused skin assessment warm/dry. HEAD: Atraumatic. Normocephalic. EYES: Pupils equal and round. No scleral icterus. No injection or drainage. ENT: No nasal bleeding or discharge. Mucous membranes pink and moist. NECK: Trachea midline. No JVD. CARDIOVASCULAR: Regular rate and rhythm. No murmur appreciated. RESPIRATORY: No accessory muscle use. Clear to auscultation. Breath sounds equal bilaterally. GASTROINTESTINAL: Abdomen soft, non-tender, nondistended. MUSCULOSKELETAL: No obvious deformities. No clubbing. No cyanosis. No edema. NEUROLOGICAL: Awake and alert. No obvious cranial nerve deficits. Motor grossly within normal limits. Normal speech. PSYCHIATRIC: Appropriate mood and affect; insight and judgment normal. Data Data Last Documented VS Vital Signs Date Time Temp Pulse Resp B/P (MAP) Pulse Ox O2 Delivery O2 Flow Rate FiO2 05/01/18 04:19 58 18 173/70 (104) 100 Nasal Cannula 2.00 05/01/18 03:45 98.4 Orders Orders Complete Blood Count With Diff (05/01/18 03:53) Basic Metabolic Panel (Bmp) (05/01/18 03:53) B-Type Natriuretic Peptide (05/01/18 03:53) Act Partial Throm Time (Ptt) (05/01/18 03:53) Prothrombin Time / Inr (Pt) (05/01/18 03:53) Magnesium (Mg) (05/01/18 03:53) Troponin I (05/01/18 03:53) Chest, Single Ap (05/01/18 03:53) Methylprednisolone So Succ Inj (Solumedr (05/01/18 04:00) Albuterol-Ipratropium Neb (Duoneb Neb) (05/01/18 04:00) Hydralazine Inj (Apresoline Inj) (05/01/18 04:15) Type And Screen (05/01/18 05:13) Blood Product Administration (05/01/18 05:13) Sodium Chlor 0.9% 250 Ml Inj (Ns 250 Ml (05/01/18 05:15) Pantoprazole Inj (Protonix Inj) (05/01/18 05:15) Labs Laboratory Tests Test 05/01/18 04:15 White Blood Count 8.9 TH/MM3 Red Blood Count 3.34 MIL/MM3 Hemoglobin 6.8 GM/DL Hematocrit 22.6 % Mean Corpuscular Volume 67.7 FL Mean Corpuscular Hemoglobin 20.5 PG Mean Corpuscular Hemoglobin Concent 30.3 % Red Cell Distribution Width 17.9 % Platelet Count 218 TH/MM3 Mean Platelet Volume 9.1 FL Neutrophils (%) (Auto) 71.8 % Lymphocytes (%) (Auto) 15.9 % Monocytes (%) (Auto) 7.5 % Eosinophils (%) (Auto) 4.1 % Basophils (%) (Auto) 0.7 % Neutrophils # (Auto) 6.4 TH/MM3 Lymphocytes # (Auto) 1.4 TH/MM3 Monocytes # (Auto) 0.7 TH/MM3 Eosinophils # (Auto) 0.4 TH/MM3 Basophils # (Auto) 0.1 TH/MM3 CBC Comment AUTO DIFF Blood Urea Nitrogen 24 MG/DL Creatinine 1.31 MG/DL Random Glucose 94 MG/DL Calcium Level 8.8 MG/DL Magnesium Level 2.3 MG/DL Sodium Level 144 MEQ/L Potassium Level 4.2 MEQ/L Chloride Level 113 MEQ/L Carbon Dioxide Level 22.1 MEQ/L Anion Gap 9 MEQ/L Estimat Glomerular Filtration Rate 53 ML/MIN Troponin I LESS THAN 0.02 NG/ML B-Type Natriuretic Peptide 165 PG/ML MDM Medical Decision Making Medical Screen Exam Complete: Yes Emergency Medical Condition: Yes Interpretation(s) EKG: NSR 63bpm. Normal axis. No ST segment elevation or depression. Differential Diagnosis Pneumonia vs. COPD exacerbation vs. CHF vs. symptomatic anemia Narrative Course 77yo M with PMH of COPD and CVA here with sob at rest for a few days. Labs reviewed, no leukocytosis. H/H low at 6.8/22.6. This is lower than baseline of 9.3/28.0 on 01/27/18. Troponin negative. BNP mildly elevated at 165. BUN/ creatinine elevated at 24/1.31 but this is baseline. CXR showed minimal basilar atelectasis. No dense consolidation or pleural effusion. Pt denies any bleeding or black stool and rectal exam showed yellow stool but hemaprompt positive. Pt given protonix and ordered 2 units of PRBC for transfusion. Discussed with Dr. Dos Santos and accepted to her service for symptomatic anemia secondary to GI bleed. HemaPrompt Point of Care Internal Pos. & Neg. Controls: Passed Fecal Specimen Occult Blood: Positive Diagnosis Primary Impression: Symptomatic anemia Additional Impression: GI bleed Qualified Codes: K92.2 - Gastrointestinal hemorrhage, unspecified Admitting Information Admitting Physician Requests: it Sahra Palm DO May 01, 2018 05:21
[2018-05-01] MEDS ORDERED: SENNOSIDES 8.6 MG TAB PO PRN (05:30)
[2018-05-01] MEDS ORDERED: RESP: ALBUTEROL 2.5 MG/IPRATROPIUM 0.5 MG NEB (PRN) NEB (05:30)
[2018-05-01] MEDS ORDERED: ACETAMINOPHEN 325 MG TAB PO PRN ×2 (05:30→11:45)
[2018-05-01] MEDS ORDERED: ACETAMINOPHEN/HYDROcodone 325 MG/5 MG TAB PO PRN (05:30)
[2018-05-01] MEDS ORDERED: METOCLOPRAMIDE HCL 10 MG/2 ML VIAL IV PUSH PRN (05:30)
[2018-05-01] MEDS ORDERED: LACTULOSE SYRUP 20 GM/30 ML CUP PO PRN (05:30)
[2018-05-01] MEDS ORDERED: MAGNESIUM HYDROXIDE SUSP 30 ML CUP PO PRN (05:30)
[2018-05-01] MEDS ORDERED: SODIUM CHLORIDE 0.9% FLUSH 10 ML FLUSH IV FLUSH PRN (05:30)
[2018-05-01] MEDS ORDERED: BISACODYL 10 MG SUPP RECTAL PRN (05:30)
[2018-05-01] MEDS: methylPREDNISolone SOD SUCC 40 MG/1 ML VIAL IV PUSH SCH ×4 (05:44→23:32)
--- NOTE | 2018-05-01 05:45 | HHI.HP ---
[facility] Daniel Patterson MD Admission Diagnosis Symptomatic anemia secondary to GI bleed Diagnoses: (1) GI bleed Diagnosis: Principal (2) Symptomatic anemia Diagnosis: Principal (3) COPD (chronic obstructive pulmonary disease) Diagnosis: Principal Travel History International Travel<30 Days: No Contact w/Intl Traveler <30 Da: No Traveled to Known Affected Are: No History of Present Illness This is a 77-year-old male with a PMH of HTN, COPD and CVA who presents the ER with complaints of generalized weakness and SOB x3 days. States symptoms have been getting progressively worse. O2 Dependent at baseline, no improvement w/ oxygen or nebulizers/MDI. Denies fever, chills, cough or chest pain. On arrival, BP 209/86, HR 64, O2 sat 92% on RA, Afebrile. Hemoglobin 6.8, producing 9.3 on 01/27/2018. Hemoccult positive on exam. Creatinine 1.31, previously 1.28 on 01/26/2018. Troponin negative. CXR with no consolidation or effusion. On exam, patient noted to have some wheezing. S/p Solu-Medrol and DuoNeb. 2u pRBC ordered in ER, pending transfusion. Review of Systems Except as stated in HPI: all other systems reviewed are Neg ROS: 14 point review of systems otherwise negative. Past Family Social History Past Medical History PMH: HTN, COPD and CVA Past Surgical History PAST SURGICAL HISTORY: None Allergies: Coded Allergies: iodine (Verified Allergy, Severe, Hives, 11/07/17) Family History PAST FAMILY HISTORY: Reviewed. No h/o DM or CAD Social History PAST SOCIAL HISTORY: Negative for alcohol, tobacco or drugs Physical Exam Vital Signs Vital Signs Date Time Temp Pulse Resp B/P (MAP) Pulse Ox O2 Delivery O2 Flow Rate FiO2 05/01/18 04:19 58 18 173/70 (104) 100 Nasal Cannula 2.00 05/01/18 03:45 98.4 64 16 209/86 (127) 92 Physical Exam PE: GENERAL: Pleasant elderly white male in no acute distress. Mild pallor. at bedside. HEENT: PERRLA, EOMI. No scleral icterus or conjunctival pallor. No lid lag or facial droop. CARDIOVASCULAR: Regular rate and rhythm. No obvious murmurs to auscultation. No chest tenderness to palpation. RESPIRATORY: No obvious rhonchi, occasional wheezing. Clear to auscultation. Breath sounds equal bilaterally. GASTROINTESTINAL: Abdomen soft, non-tender, nondistended. BS normal. MUSCULOSKELETAL: Extremities without clubbing, cyanosis, or edema. No obvious deformities. NEUROLOGICAL: Awake, alert and oriented x4. No focal neurologic deficits. Moving both upper and lower extremities spontaneously. Laboratory Laboratory Tests Test 05/01/18 04:15 05/01/18 05:21 White Blood Count 8.9 Red Blood Count 3.34 Hemoglobin 6.8 Hematocrit 22.6 Mean Corpuscular Volume 67.7 Mean Corpuscular Hemoglobin 20.5 Mean Corpuscular Hemoglobin Concent 30.3 Red Cell Distribution Width 17.9 Platelet Count 218 Mean Platelet Volume 9.1 Neutrophils (%) (Auto) 71.8 Lymphocytes (%) (Auto) 15.9 Monocytes (%) (Auto) 7.5 Eosinophils (%) (Auto) 4.1 Basophils (%) (Auto) 0.7 Neutrophils # (Auto) 6.4 Lymphocytes # (Auto) 1.4 Monocytes # (Auto) 0.7 Eosinophils # (Auto) 0.4 Basophils # (Auto) 0.1 CBC Comment AUTO DIFF Blood Urea Nitrogen 24 Creatinine 1.31 Random Glucose 94 Calcium Level 8.8 Magnesium Level 2.3 Sodium Level 144 Potassium Level 4.2 Chloride Level 113 Carbon Dioxide Level 22.1 Anion Gap 9 Estimat Glomerular Filtration Rate 53 Troponin I LESS THAN 0.02 B-Type Natriuretic Peptide 165 Result Diagram: 05/01/185 05/01/18414 Caprini VTE Risk Assessment Caprini VTE Risk Assessment: No/Low Risk (score <= 1) VTE Pharm Contraindication: Active bleeding Caprini Risk Assessment Model Point Value = 1 Point Value = 2 Point Value = 3 Point Value = 5 Age 41-60 Minor surgery BMI > 25 kg/m2 Swollen legs Varicose veins or History of unexplained or recurrent spontaneous Oral contraceptives or hormone replacement Sepsis (< 1 month) Serious lung disease, including pneumonia (< 1 month) Abnormal pulmonary function Acute myocardial infarction Congestive heart failure (< 1 month) History of inflammatory bowel disease Medical patient at bed rest Age 61-74 Arthroscopic surgery Major open surgery (> 45 min) Laparoscopic surgery (> 45 min) Malignancy Confined to bed (> 72 hours) Immobilizing plaster cast Central venous access Age >= 75 History of VTE Family history of VTE Factor V Leiden Prothrombin [id number] Lupus anticoagulant Anticardiolipin antibodies Elevated serum homocysteine Heparin-induced thrombocytopenia Other congenital or acquired thrombophilia Stroke (< 1 month) Elective arthroplasty Hip, pelvis, or leg fracture Acute spinal cord injury (< 1 month) Prophylaxis Regimen Total Risk Factor Score Risk Level Prophylaxis Regimen 0-1 Low Early ambulation 2 Moderate Order ONE of the following: *Sequential Compression Device (SCD) *Heparin 5000 units SQ BID 3-4 Higher Order ONE of the following medications: *Heparin 5000 units SQ TID *Enoxaparin/Lovenox 40 mg SQ daily (WT < 150 kg, CrCl > 30 mL/min) *Enoxaparin/Lovenox 30 mg SQ daily (WT < 150 kg, CrCl > 10-29 mL/min) *Enoxaparin/Lovenox 30 mg SQ BID (WT < 150 kg, CrCl > 30 mL/min) AND/OR *Sequential Compression Device (SCD) 5 or more Highest Order ONE of the following medications: *Heparin 5000 units SQ TID (Preferred with Epidurals) *Enoxaparin/Lovenox 40 mg SQ daily (WT < 150 kg, CrCl > 30 mL/min) *Enoxaparin/Lovenox 30 mg SQ daily (WT < 150 kg, CrCl > 10-29 mL/min) *Enoxaparin/Lovenox 30 mg SQ BID (WT < 150 kg, CrCl > 30 mL/min) AND *Sequential Compression Device (SCD) Assessment and Plan Problem List: (1) GI bleed ICD Code: K92.2 - Gastrointestinal hemorrhage, unspecified Status: Acute (2) Symptomatic anemia ICD Code: D64.9 - Anemia, unspecified Status: Acute (3) COPD (chronic obstructive pulmonary disease) ICD Code: J44.9 - Chronic obstructive pulmonary disease, unspecified Assessment and Plan A/P: 1. GI Bleed: Hemoccult +, Hgb 6.8, S/p Protonix, start Protonix gtt, Consult GI for further eval/intervention. Hold Plavix. 2. Symptomatic Anemia: Secondary to above, Hgb 6.8, previously 9.3 on 01/27/18, repeat Hgb/Hct after transfusion. 3. COPD: Chronic Respiratory Failure w/ Acute Exacerbation. Moderate-Severe. Monitor O2. Solu-Medrol, DuoNeb, Symbicort. 4. DVT Prophylaxis: Pharmacologic contraindication due to active bleeding 5. Social work for d/c planning as needed 6. Case discussed w/ ER physician at length, labs/records/imaging reviewed by me. Physician Certification 2 Midnight Certification Type: Admission for Inpatient Services Order for Inpatient Services The services are ordered in accordance with Medicare regulations or non- Medicare payer requirements, as applicable. In the case of services not specified as inpatient-only, they are appropriately provided as inpatient services in accordance with the 2-midnight benchmark. Estimated LOS (days): 2 days is the estimated time the patient will need to remain in the hospital, assuming treatment plan goals are met and no additional complications. Post-Hospital Plan: Not yet determined Problem Qualifiers (1) GI bleed: Qualified Codes: K92.2 - Gastrointestinal hemorrhage, unspecified María Elena Dos Santos MD May 01, 2018 05:45
[2018-05-01 06:11] LABS: ACANTHOCYTES OCC (NORMAL); OVALOCYTES 1+ (NORMAL)
[2018-05-01] MEDS: BUDESONIDE-FORMOTEROL 160/4.5 MCG INHALER INH SCH ×2 (08:57→21:41)
[2018-05-01] MEDS: SODIUM CHLORIDE 0.9% FLUSH 10 ML FLUSH IV FLUSH SCH ×2 (09:00→20:05)
[2018-05-01] MEDS ORDERED: DOCUSATE SODIUM 50 MG/SENNA 8.6 MG TAB PO SCH (09:00)
[2018-05-01] MEDS: CITALOPRAM HYDROBROMIDE 20 MG TAB PO SCH (09:01)
[2018-05-01] MEDS: RESP: ALBUTEROL 2.5 MG/IPRATROPIUM 0.5 MG NEB (SCH) NEB ×4 (09:26→20:16)
[2018-05-01] MEDS: MORPHINE SULFATE 4 MG/ML INJ IV PUSH PRN ×2 (09:57→15:19)
--- NOTE | 2018-05-01 10:58 | PD.CONS ---
HPI History of Present Illness This is a 77 year old overweight male who was admitted to the hospital on 2017 with symptoms of generalized weakness and shortness of breath. Onset of shortness of breath symptoms has worsened over the past 3 days but patient also notes generalized abdominal bloating and pressure sensation and weakness for the past 3-4 weeks. Patient denies any nausea or vomiting and states as far as he knows his stools have been normal, brown with no diarrhea or constipation. Patient does note weekly alcohol usage or sometimes biweekly. Patient states EGD and colonoscopy back in 2017 at [facility] but does not remember any results of the test but thinks that it was done due to possible bleeding. Patient has just received some pain meds and is a fair to poor historian timing of his events. Gastroenterology was consulted for GI bleed with hemoglobin on admission 6.8. Patient is now scheduled for 2 units of packed RBCs which are pending. Patient states unknown of any family history of colon cancer. (Breanna Barba) PFSH Past Medical History PMH: HTN, COPD and CVA Past Surgical History PAST SURGICAL HISTORY: None (Breanna Barba) Coded Allergies: iodine (Verified Allergy, Severe, Hives, 11/07/17) Medications Administered Medications Medications (Trade) Dose Ordered Sig/Kaitlin Route PRN Reason Start Time Stop Time Status Last Admin Dose Admin Sodium Chloride 250 ml @ 15 mls/hr ONCE ONCE IV 05/01/18 05:15 05/01/18 21:54 05/01/18 09:01 Methylprednisolone Sodium Succinate (SoluMEDROL INJ) 40 mg Q6HR IV PUSH 05/01/18 06:00 05/01/18 05:44 Albuterol/ Ipratropium (Duoneb Neb) 1 ampule Q4HR WHILE AWAKE NEB NEB 05/01/18 08:00 05/01/18 09:26 Sodium Chloride (NS Flush) 2 ml BID IV FLUSH 05/01/18 09:00 05/01/18 09:00 Acetaminophen/ Hydrocodone Bitart ([place] 5-325 Mg) 1 tab Q4H PRN PO PAIN SCALE 3 TO 5 05/01/18 05:30 05/01/18 05:44 Morphine Sulfate (Morphine Inj) 2 mg Q3H PRN IV PUSH Pain 6-10 05/01/18 05:30 05/01/18 09:57 Senna/Docusate Sodium (Shyla-Colace) 1 tab BID PO 05/01/18 09:00 05/01/18 09:00 Citalopram Hydrobromide (CeleXA) 10 mg DAILY PO 05/01/18 09:00 05/01/18 09:01 Family History PAST FAMILY HISTORY: Reviewed. No h/o DM or CAD No known colon cancer Social History PAST SOCIAL HISTORY: Weekly or biweekly alcohol intake tobacco or drugs (Breanna Barba) Review of Systems Constitutional: COMPLAINS OF: Fatigue Respiratory: COMPLAINS OF: Shortness of breath Gastrointestinal: COMPLAINS OF: Abdominal pain (Pressure bloating sensation but no pain) (Breanna Barba) GI Exam Vitals I&O Vital Signs Date Time Temp Pulse Resp B/P (MAP) Pulse Ox O2 Delivery O2 Flow Rate FiO2 05/01/18 10:06 20 05/01/18 10:00 97.4 86 20 126/75 (92) 99 05/01/18 09:29 100 Nasal Cannula 2.00 05/01/18 08:00 97.5 90 18 179/77 (111) 97 05/01/18 07:34 18 05/01/18 04:19 58 18 173/70 (104) 100 Nasal Cannula 2.00 05/01/18 03:45 98.4 64 16 209/86 (127) 92 I/O 04/30/18 04/30/18 04/30/18 05/01/18 05/01/18 05/01/18 06:59 14:59 22:59 06:59 14:59 22:59 Intake Total 250 ml Balance 250 ml Intake Oral 250 ml Imaging Last Impressions Chest X-Ray 05/01/18 3976 Signed Impressions: CONCLUSION: Minimal basilar atelectasis. No dense consolidation or pleural effusion. Laboratory Test 05/01/18 04:15 05/01/18 05:21 White Blood Count 8.9 TH/MM3 Red Blood Count 3.34 MIL/MM3 Hemoglobin 6.8 GM/DL Hematocrit 22.6 % Mean Corpuscular Volume 67.7 FL Mean Corpuscular Hemoglobin 20.5 PG Mean Corpuscular Hemoglobin Concent 30.3 % Red Cell Distribution Width 17.9 % Platelet Count 218 TH/MM3 Mean Platelet Volume 9.1 FL Neutrophils (%) (Auto) 71.8 % Lymphocytes (%) (Auto) 15.9 % Monocytes (%) (Auto) 7.5 % Eosinophils (%) (Auto) 4.1 % Basophils (%) (Auto) 0.7 % Neutrophils # (Auto) 6.4 TH/MM3 Lymphocytes # (Auto) 1.4 TH/MM3 Monocytes # (Auto) 0.7 TH/MM3 Eosinophils # (Auto) 0.4 TH/MM3 Basophils # (Auto) 0.1 TH/MM3 CBC Comment AUTO DIFF Differential Comment AUTO DIFF CONFIRMED Platelet Estimate NORMAL Platelet Morphology Comment ENLARGED Ovalocytes 1+ Acanthocytes OCC Blood Urea Nitrogen 24 MG/DL Creatinine 1.31 MG/DL Random Glucose 94 MG/DL Calcium Level 8.8 MG/DL Magnesium Level 2.3 MG/DL Sodium Level 144 MEQ/L Potassium Level 4.2 MEQ/L Chloride Level 113 MEQ/L Carbon Dioxide Level 22.1 MEQ/L Anion Gap 9 MEQ/L Estimat Glomerular Filtration Rate 53 ML/MIN Troponin I LESS THAN 0.02 NG/ML B-Type Natriuretic Peptide 165 PG/ML Prothrombin Time 10.0 SEC Prothromb Time International Ratio 1.0 RATIO Activated Partial Thromboplast Time 19.6 SEC Physical Examination HEENT: Overweight, normocephalic; atraumatic; no jaundice. NECK: Neck is supple, no JVD, no lymphadenopathy. CHEST: Mild diminished breath sounds CARDIAC: Regular rate and rhythm ABDOMEN: Round, taut, mild to moderate distention ,nontender; bowel sounds are present in all four quadrants. EXTREMITIES: No clubbing, cyanosis, or edema. SKIN: Normal; no rash; ARTIFICIAL INSEMINATION TECHNICIAN: Fair to poor historian (Breanna Barba) Assessment and Plan Plan 77-year-old old overweight male presents to the hospital on 05/01/2018 with symptoms of weakness and shortness of breath for 3-4 week. Which is worsened over the past 3 days patient notes EGD colonoscopy back in 2017 at [facility] for possible bleeding the patient does not remember that for sure or remember any results. Currently patient has symptoms of abdominal bloating and pressure, but denies any nausea vomiting diarrhea or constipation. Patient states normal brown stool to his knowledge. Current hemoglobin 6.8 and patient is pending 2 units of packed RBCs. Patient does admit to weekly or biweekly alcohol intake Plan Diet per attending Consent for EGD in the a.m. Monitor labs with special attention to hemoglobin Patient plan for transfusion 2 units today Will check hepatitis panel and LFTs Check anemia panel with iron and TIBC Further recommendations to follow Patient was seen per myself and Dr. Honeycutt, this note was written on his behalf (Breanna Barba) Physician Comments Seen and examined, plan as above. Will obtain consent for EGD and review previous endoscopic evaluation in 207. Further recommendations to follow. Thank you. (Erica Honeycutt MD) Breanna Barba May 01, 2018 10:58 Erica Honeycutt MD May 01, 2018 14:44
[2018-05-01] MEDS ORDERED: diphenhydrAMINE HCL 25 MG CAP PO PRN (11:45)
[2018-05-01] MEDS ORDERED: FUROSEMIDE 20 MG/2 ML VIAL IV PUSH ONE (11:45)
--- NOTE | 2018-05-01 12:29 | HHI.PR ---
Subjective Remarks Follow-up COPD exacerbation/GI bleed May 01, 2018-patient seen and examined, patient is currently 6.8/22.6 and patient denies any active GI bleed. Only complains of shortness of breath. Objective Vitals Vital Signs Date Time Temp Pulse Resp B/P (MAP) Pulse Ox O2 Delivery O2 Flow Rate FiO2 05/01/18 10:20 82 20 156/69 (98) 99 05/01/18 10:06 20 05/01/18 10:00 97.4 86 20 126/75 (92) 99 05/01/18 09:29 100 Nasal Cannula 2.00 05/01/18 08:00 97.5 90 18 179/77 (111) 97 05/01/18 07:34 18 05/01/18 04:19 58 18 173/70 (104) 100 Nasal Cannula 2.00 05/01/18 03:45 98.4 64 16 209/86 (127) 92 I/O 04/30/18 04/30/18 04/30/18 05/01/18 05/01/18 05/01/18 07:00 15:00 23:00 07:00 15:00 23:00 Intake Total 250 ml Balance 250 ml Intake Oral 250 ml Result Diagram: 05/01/18 0415 05/01/18 0415 Imaging Last Impressions Chest X-Ray 05/01/18 0353 Signed Impressions: CONCLUSION: Minimal basilar atelectasis. No dense consolidation or pleural effusion. Objective Remarks GENERAL: NAD SKIN: Warm and dry. HEAD: Normocephalic. EYES: No scleral icterus. No injection or drainage. NECK: Supple, trachea midline. No JVD or lymphadenopathy. CARDIOVASCULAR: Regular rate and rhythm without murmurs, gallops, or rubs. RESPIRATORY: Breath sounds equal bilaterally. No accessory muscle use. GASTROINTESTINAL: Abdomen soft, non-tender, nondistended. MUSCULOSKELETAL: No cyanosis, or edema. BACK: Nontender without obvious deformity. No CVA tenderness. A/P Problem List: (1) GI bleed ICD Code: K92.2 - Gastrointestinal hemorrhage, unspecified Status: Acute (2) Symptomatic anemia ICD Code: D64.9 - Anemia, unspecified Status: Acute (3) COPD (chronic obstructive pulmonary disease) ICD Code: J44.9 - Chronic obstructive pulmonary disease, unspecified Assessment and Plan 77-year-old man with 1. GI Bleed: We will transfuse 2 unit packed red blood cell today May 01, 2018. Continue Protonix gtt and hold Plavix Appreciate input from GI for possible panendoscopy 2. Symptomatic Anemia: Secondary to above, Hgb 6.8, previously 9.3 on 01/27/18, repeat Hgb/Hct after transfusion. 3. COPD: Chronic Respiratory Failure w/ Acute Exacerbation. Moderate-Severe. Monitor O2. Solu-Medrol, DuoNeb, Symbicort. Add Spiriva 4. DVT Prophylaxis: Pharmacologic contraindication due to active bleeding Problem Qualifiers (1) GI bleed: Qualified Codes: K92.2 - Gastrointestinal hemorrhage, unspecified Dani Ag MD May 01, 2018 12:29
[2018-05-01 13:12] LABS: % SATURATION IRON PROFILE 2.2 % (20-50); ALBUMIN 3.7 GM/DL (3.4-5.0); ALT (GPT) 19 U/L (12-78); AST (GOT) 11 U/L (15-37); DIRECT BILIRUBIN ADULT 0.1 MG/DL (0.0-0.2); IRON (FE) 11 MCG/DL (65-175); TOTAL IRON BINDING CAPACITY 505 MCG/DL (250-450)
[2018-05-01 13:15] LABS: ALKALINE PHOSPHATASE 78 U/L (45-117); FERRITIN 6 NG/ML (26-388); INDIRECT BILIRUBIN 0.1 MG/DL (0.0-0.8); TOTAL BILIRUBIN ADULT 0.2 MG/DL (0.2-1.0); TOTAL PROTEIN 7.3 GM/DL (6.4-8.2)
--- NOTE | 2018-05-01 14:52 | EKG ---
Date Performed: 05/01/2018 Time Performed: 03:50:30 PTAGE: 77 years EKG: Sinus rhythm NORMAL ECG PREVIOUS TRACING : 01/24/2018 06.22 Since the previous tracing, no significant change noted DOCTOR: Abdelrahman Sandra Interpretating Date/Time 05/01/2018 14:51:07
[2018-05-01] MEDS: TAMSULOSIN HCL 0.4 MG CAP PO SCH (20:03)
[2018-05-02] VITALS (10 sets, daily range): BP systolic 127–177; BP diastolic 60–79; PULSE 67–99; RESP 16–18; TEMP 97.5–98; O2SAT 93–99
[2018-05-02] MEDS ORDERED: SODIUM CHLORID 0.9% 500 ML IV PRN (03:45)
[2018-05-02] MEDS ORDERED: LACTATED RINGER'S 1000 ML IV PRN (03:45)
[2018-05-02] MEDS: methylPREDNISolone SOD SUCC 40 MG/1 ML VIAL IV PUSH SCH (05:55)
[2018-05-02] MEDS: RESP: ALBUTEROL 2.5 MG/IPRATROPIUM 0.5 MG NEB (SCH) NEB ×4 (08:33→20:04)
[2018-05-02] MEDS: SODIUM CHLORIDE 0.9% FLUSH 10 ML FLUSH IV FLUSH SCH ×2 (09:00→19:40)
[2018-05-02] MEDS: CITALOPRAM HYDROBROMIDE 20 MG TAB PO SCH (09:00)
[2018-05-02] MEDS: TIOTROPIUM BROMIDE 18 MCG INH INH SCH (09:00)
[2018-05-02] MEDS: BUDESONIDE-FORMOTEROL 160/4.5 MCG INHALER INH SCH ×2 (09:00→19:40)
[2018-05-02 09:40] LABS: AUTOMATED NEUTROPHIL # 11.1 TH/MM3 (1.8-7.7); BASOPHIL % 0.1 % (0.0-2.0); HEMATOCRIT 25.8 % (39.0-51.0); HEMOGLOBIN 8.6 GM/DL (13.0-17.0); LYMPH % 6.5 % (9.0-44.0); LYMPHOCYTE # 0.8 TH/MM3 (1.0-4.8); MEAN CELL VOLUME 71.5 FL (80.0-100.0); MEAN CORPUSCULAR HEMOGLOBIN 23.7 PG (27.0-34.0); MEAN CORPUSCULAR HGB CONC 33.2 % (32.0-36.0); MONO % 6.1 % (0.0-8.0); MONOCYTE # 0.8 TH/MM3 (0-0.9); NEUT % 87.3 % (16.0-70.0); PLATELET COUNT 215 TH/MM3 (150-450); RED BLOOD COUNT 3.61 MIL/MM3 (4.50-5.90); RED CELL DISTRIBUTION WIDTH 20.6 % (11.6-17.2); WHITE BLOOD COUNT 12.7 TH/MM3 (4.0-11.0)
[2018-05-02 10:00] LABS: ALBUMIN 3.4 GM/DL (3.4-5.0); AST (GOT) 11 U/L (15-37); BICARBONATE 20.8 MEQ/L (21.0-32.0); BLOOD UREA NITROGEN 29 MG/DL (7-18); CALCIUM 8.9 MG/DL (8.5-10.1); CHLORIDE 111 MEQ/L (98-107); CREATININE 1.36 MG/DL (0.60-1.30); GLOMERULAR FILTRATION RATE 51 ML/MIN (>89); GLUCOSE,RANDOM 126 MG/DL (74-106); SODIUM (NA) 143 MEQ/L (136-145)
[2018-05-02 10:01] LABS: ALT (GPT) 18 U/L (12-78)
[2018-05-02 10:04] LABS: ALKALINE PHOSPHATASE 75 U/L (45-117); TOTAL BILIRUBIN ADULT 0.2 MG/DL (0.2-1.0); TOTAL PROTEIN 6.8 GM/DL (6.4-8.2)
[2018-05-02] MEDS: cloNIDine HCL 0.2 MG TAB PO SCH ×2 (11:15→19:40)
--- NOTE | 2018-05-02 11:16 | HHI.PR ---
Subjective Remarks Follow-up COPD exacerbation/GI bleed May 01, 2018-patient seen and examined, patient is currently 6.8/22.6 and patient denies any active GI bleed. Only complains of shortness of breath. May 02, 2018-patient seen and examined, reports some improvement of shortness of breath. H&H improved post transfusion. Currently n.p.o. pending endoscopy Objective Vitals Vital Signs Date Time Temp Pulse Resp B/P (MAP) Pulse Ox O2 Delivery O2 Flow Rate FiO2 05/02/18 08:35 93 Nasal Cannula 2.00 05/02/18 08:00 97.8 86 16 177/75 (109) 95 05/02/18 04:00 97.9 99 18 167/79 (108) 94 05/02/18 03:59 93 05/02/18 00:37 94 05/01/18 23:39 98.3 97 19 157/75 (102) 96 05/01/18 23:20 98.3 97 19 157/75 96 05/01/18 20:30 101 05/01/18 19:52 98.8 99 20 156/70 97 05/01/18 19:37 97.8 102 20 163/72 97 05/01/18 19:30 97.8 102 20 163/72 (102) 97 05/01/18 18:02 98.6 90 20 146/88 98 05/01/18 16:30 99 Nasal Cannula 2.00 05/01/18 15:42 97.7 94 17 158/73 (101) 99 05/01/18 15:28 18 05/01/18 15:12 98.0 95 20 146/78 98 05/01/18 14:55 97.0 98 20 154/69 99 I/O 05/01/18 05/01/18 05/01/18 05/02/18 05/02/18 05/02/18 07:00 15:00 23:00 07:00 15:00 23:00 Intake Total 270 ml 1370 ml 1000 ml Output Total 1800 ml Balance 270 ml 1370 ml -800 ml Intake Oral 250 ml 970 ml 320 ml IV Total 250 ml Packed Cells 400 ml 400 ml Blood Product IV Normal Saline Flush 20 ml 30 ml Output Urine Total 1800 ml # Voids 1 0 # Bowel Movements 0 Result Diagram: 05/02/18 0900 05/02/18 0900 Imaging Last Impressions Chest X-Ray 05/01/18 0353 Signed Impressions: CONCLUSION: Minimal basilar atelectasis. No dense consolidation or pleural effusion. Objective Remarks GENERAL: NAD SKIN: Warm and dry. HEAD: Normocephalic. EYES: No scleral icterus. No injection or drainage. NECK: Supple, trachea midline. No JVD or lymphadenopathy. CARDIOVASCULAR: Regular rate and rhythm without murmurs, gallops, or rubs. RESPIRATORY: Breath sounds equal bilaterally. No accessory muscle use. GASTROINTESTINAL: Abdomen soft, non-tender, nondistended. MUSCULOSKELETAL: No cyanosis, or edema. BACK: Nontender without obvious deformity. No CVA tenderness. A/P Problem List: (1) GI bleed ICD Code: K92.2 - Gastrointestinal hemorrhage, unspecified Status: Acute (2) Symptomatic anemia ICD Code: D64.9 - Anemia, unspecified Status: Acute (3) COPD (chronic obstructive pulmonary disease) ICD Code: J44.9 - Chronic obstructive pulmonary disease, unspecified Assessment and Plan 77-year-old man with 1. GI Bleed: Symptomatic anemia Transfused 2 unit packed red blood cell May 01, 2018. H&H currently up Continue Protonix gtt and hold Plavix Appreciate input from GI for possible panendoscopy today May 02, 2018 Iron deficiency anemia Patient would benefit from Venofer transfusion 2. COPD: Chronic Respiratory Failure w/ Acute Exacerbation and now resolved. Moderate-Severe. monitor O2. Switch Solu-Medrol to p.o. prednisone, DuoNeb, Symbicort. Spiriva 3. Labile benign hypertension Resume Norvasc Start Clonidine 0.2 mg BID 4. Leukocytosis Stress reactive versus secondary to treatment with steroid Monitor WBC 5. DVT Prophylaxis: Pharmacologic contraindication due to active bleeding Problem Qualifiers (1) GI bleed: Qualified Codes: K92.2 - Gastrointestinal hemorrhage, unspecified Dani Ag MD May 02, 2018 11:16
[2018-05-02] MEDS ORDERED: LIDOCAINE HCL 1% PF 5 ML SYRINGE OTHER ONE (12:00)
[2018-05-02] MEDS ORDERED: PROPOFOL 200 MG/20 ML AMP IV ONE (12:00)
--- NOTE | 2018-05-02 12:34 | GIPROC ---
[facility] [address] [facility]. [facility], [address] EGD PROCEDURE REPORT EXAM DATE: 05/02/2018 PATIENT NAME: Errol Ramirez MR #: [id number] BIRTHDATE: 1940 ATTENDING: Erica Honeycutt MD ORDER #: [id number] [employer]AL [employer]ANGEMENT DIRECTOR: Roselia Dias and Jolie Chavez STATUS: inpatient INDICATIONS: The patient is a 77 yr old male here for an EGD due to anemia PROCEDURE PERFORMED: EGD, diagnostic MEDICATIONS: None and Per Anesthesia. TOPICAL ANESTHETIC: none CONSENT: The patient understands the risks and benefits of the procedure and understands that these risks include, but are not limited to: sedation, allergic reaction, infection, perforation and/or bleeding. Alternative means of evaluation and treatment include, among others: physical exam, x-rays, and/or surgical intervention. The patient elects to proceed with this endoscopic procedure. medical equipment was checked for proper function. Hand hygiene and appropriate measures for infection prevention was taken. After the risks, benefits and alternatives of the procedure were thoroughly explained, Informed consent was verified, confirmed and timeout was successfully executed by the treatment team. The patient was anesthetized with topical anesthesia and the Pentax [id number] endoscope was introduced through the mouth and advanced to the second portion of the duodenum. Retroflexion was performed and was normal The gastroscope was then slowly withdrawn and removed. ESOPHAGUS: A medium sized hiatal hernia was noted. STOMACH: The mucosa of the stomach appeared normal. DUODENUM: The duodenal mucosa appeared normal in the duodenal bulb, 2nd part duodenum, and 3rd part duodenum. ADVERSE EVENTS: There were no complications. IMPRESSIONS: 1. Medium sized hiatal hernia 2. The mucosa of the stomach appeared normal 3. Normal duodenal mucosa in the duodenal bulb, 2nd part duodenum, and 3rd part duodenum 4. Retroflexion was performed and was normal RECOMMENDATIONS: Colonoscopy as outpatient, after reviewing the recent colonoscopy at outside facility PATIENT CONDITION: stable DISPOSITION: Observation REPEAT EXAM: NONE Erica Honeycutt MD eSigned: Erica Honeycutt MD 05/02/2018 12:34 PM cc:
[2018-05-02] MEDS: TAMSULOSIN HCL 0.4 MG CAP PO SCH (19:40)
[2018-05-03] VITALS (10 sets, daily range): BP systolic 138–170; BP diastolic 64–77; PULSE 64–82; RESP 18–20; TEMP 97.2–97.9; O2SAT 96–99
[2018-05-03] MEDS: CITALOPRAM HYDROBROMIDE 20 MG TAB PO SCH (08:20)
[2018-05-03] MEDS: predniSONE 20 MG TAB PO SCH (08:21)
[2018-05-03] MEDS: cloNIDine HCL 0.2 MG TAB PO SCH ×2 (08:21→20:43)
[2018-05-03] MEDS: TIOTROPIUM BROMIDE 18 MCG INH INH SCH (08:22)
[2018-05-03] MEDS: BUDESONIDE-FORMOTEROL 160/4.5 MCG INHALER INH SCH ×2 (08:24→20:43)
[2018-05-03] MEDS: RESP: ALBUTEROL 2.5 MG/IPRATROPIUM 0.5 MG NEB (SCH) NEB ×4 (09:43→21:16)
[2018-05-03 10:48] LABS: AUTOMATED NEUTROPHIL # 8.3 TH/MM3 (1.8-7.7); BASOPHIL % 0.1 % (0.0-2.0); EOSINOPHIL % 0.2 % (0.0-4.0); HEMATOCRIT 25.9 % (39.0-51.0); HEMOGLOBIN 8.3 GM/DL (13.0-17.0); LYMPH % 14.7 % (9.0-44.0); LYMPHOCYTE # 1.5 TH/MM3 (1.0-4.8); MEAN CELL VOLUME 72.7 FL (80.0-100.0); MEAN CORPUSCULAR HEMOGLOBIN 23.2 PG (27.0-34.0); MONO % 5.7 % (0.0-8.0); MONOCYTE # 0.6 TH/MM3 (0-0.9); NEUT % 79.3 % (16.0-70.0); PLATELET COUNT 208 TH/MM3 (150-450); RED BLOOD COUNT 3.56 MIL/MM3 (4.50-5.90); RED CELL DISTRIBUTION WIDTH 21.1 % (11.6-17.2); WHITE BLOOD COUNT 10.5 TH/MM3 (4.0-11.0)
[2018-05-03 11:03] LABS: BICARBONATE 24.4 MEQ/L (21.0-32.0); CALCIUM 8.4 MG/DL (8.5-10.1); CREATININE 1.21 MG/DL (0.60-1.30)
--- NOTE | 2018-05-03 11:14 | HHI.PR ---
Subjective Remarks Still short of breath and not at baseline for his COPD. Wants to know why he his blood count is low. He denies any bloody stools or black stools. No complaints of chest pain. He states that he is usually on 2 L of oxygen at home. Objective Vitals Vital Signs Date Time Temp Pulse Resp B/P (MAP) Pulse Ox O2 Delivery O2 Flow Rate FiO2 05/03/18 09:44 98 Nasal Cannula 2.00 05/03/18 08:00 97.2 64 20 170/77 (108) 99 05/03/18 04:00 97.6 74 18 141/64 (89) 97 05/03/18 03:45 65 05/03/18 00:30 97.5 71 18 138/65 (89) 98 05/02/18 23:45 67 05/02/18 21:30 71 128/60 (82) 05/02/18 20:05 99 Nasal Cannula 2.00 05/02/18 20:05 73 05/02/18 20:00 97.5 74 18 170/77 (108) 96 05/02/18 16:00 98.0 79 16 154/69 (97) 99 05/02/18 12:45 84 18 130/74 (92) 99 05/02/18 12:30 97.9 88 18 138/74 (95) 99 I/O 05/02/18 05/02/18 05/02/18 05/03/18 05/03/18 05/03/18 07:00 15:00 23:00 07:00 15:00 23:00 Intake Total 1000 ml 440 ml 360 ml Output Total 1800 ml 450 ml Balance -800 ml 440 ml -450 ml 360 ml Intake Oral 320 ml 240 ml 360 ml IV Total 250 ml Packed Cells 400 ml Blood Product IV Normal Saline Flush 30 ml Other 200 ml Output Urine Total 1800 ml 450 ml # Voids 0 1 3 # Bowel Movements 0 0 Result Diagram: 05/03/18 0905/03/18 09 Objective Remarks GENERAL: This is a well-nourished, well-developed patient, in no apparent distress. CARDIOVASCULAR: Regular rate and rhythm RESPIRATORY: Diminished breath sounds bilaterally GASTROINTESTINAL: Abdomen soft, non-tender, nondistended. Normal active bowel sounds MUSCULOSKELETAL: Extremities without clubbing, cyanosis, trace edema NEURO: Alert & Oriented x4 to person, place, time, situation. Moves all ext x4 A/P Problem List: (1) GI bleed ICD Code: K92.2 - Gastrointestinal hemorrhage, unspecified Status: Acute (2) Symptomatic anemia ICD Code: D64.9 - Anemia, unspecified Status: Acute (3) COPD (chronic obstructive pulmonary disease) ICD Code: J44.9 - Chronic obstructive pulmonary disease, unspecified Assessment and Plan 77-year-old man with 1. GI Bleed: Symptomatic anemia Transfused 2 unit packed red blood cell May 01, 2018. H&H currently up and stable Discontinued previous Protonix gtt and hold Plavix Status post EGD May 02, 2018 which revealed hiatal hernia with no significant findings, GI recommended outpatient colonoscopy Iron deficiency anemia Start iron supplements 2. COPD exacerbation: Chronic Respiratory Failure w/ Acute Exacerbation and now resolved. Moderate-Severe. monitor O2. Wean O2 from 3-2 L today switch Solu-Medrol to p.o. prednisone, DuoNeb, Symbicort. Spiriva 3. Labile benign hypertension, chronic essential Resume Norvasc Start Clonidine 0.2 mg BID 4. Leukocytosis Stress reactive versus secondary to treatment with steroid Monitor WBC 5. DVT Prophylaxis: Pharmacologic contraindication due to active bleeding Discharge Planning Likely to be discharged in the morning if hemoglobin remained stable and the respiratory status improves. Problem Qualifiers (1) GI bleed: Qualified Codes: K92.2 - Gastrointestinal hemorrhage, unspecified Amisha Fontana MD May 03, 2018 11:14
[2018-05-03] MEDS: SODIUM CHLORIDE 0.9% FLUSH 10 ML FLUSH IV FLUSH SCH ×2 (11:52→20:43)
[2018-05-03] MEDS: FERROUS SULFATE 325 MG (65 MG ELEMENTAL IRON) TAB PO SCH ×2 (11:58→18:35)
--- NOTE | 2018-05-03 15:01 | HHI.GIFU ---
Subjective Remarks Pt ate his breakfast and half his lunch Denies nausea, vomiting Some abdominal pain, generalized Denies BM since GI procedure yesterday (Lynnette Brown) Objective Vitals I&O Vital Signs Date Time Temp Pulse Resp B/P (MAP) Pulse Ox O2 Delivery O2 Flow Rate FiO2 05/03/18 12:00 97.9 82 20 156/70 (98) 96 05/03/18 09:44 98 Nasal Cannula 2.00 05/03/18 08:00 97.2 64 20 170/77 (108) 99 05/03/18 04:00 97.6 74 18 141/64 (89) 97 05/03/18 03:45 65 05/03/18 00:30 97.5 71 18 138/65 (89) 98 05/02/18 23:45 67 05/02/18 21:30 71 128/60 (82) 05/02/18 20:05 99 Nasal Cannula 2.00 05/02/18 20:05 73 05/02/18 20:00 97.5 74 18 170/77 (108) 96 05/02/18 16:00 98.0 79 16 154/69 (97) 99 I/O 05/02/18 05/02/18 05/02/18 05/03/18 05/03/18 05/03/18 07:00 15:00 23:00 07:00 15:00 23:00 Intake Total 1000 ml 440 ml 360 ml Output Total 1800 ml 450 ml Balance -800 ml 440 ml -450 ml 360 ml Intake Oral 320 ml 240 ml 360 ml IV Total 250 ml Packed Cells 400 ml Blood Product IV Normal Saline Flush 30 ml Other 200 ml Output Urine Total 1800 ml 450 ml # Voids 0 1 3 # Bowel Movements 0 0 Laboratory Laboratory Tests Test 05/03/18 09:00 White Blood Count 10.5 Red Blood Count 3.56 Hemoglobin 8.3 Hematocrit 25.9 Mean Corpuscular Volume 72.7 Mean Corpuscular Hemoglobin 23.2 Mean Corpuscular Hemoglobin Concent 32.0 Red Cell Distribution Width 21.1 Platelet Count 208 Mean Platelet Volume 9.0 Neutrophils (%) (Auto) 79.3 Lymphocytes (%) (Auto) 14.7 Monocytes (%) (Auto) 5.7 Eosinophils (%) (Auto) 0.2 Basophils (%) (Auto) 0.1 Neutrophils # (Auto) 8.3 Lymphocytes # (Auto) 1.5 Monocytes # (Auto) 0.6 Eosinophils # (Auto) 0.0 Basophils # (Auto) 0.0 CBC Comment DIFF FINAL Differential Comment Blood Urea Nitrogen 26 Creatinine 1.21 Random Glucose 107 Calcium Level 8.4 Sodium Level 143 Potassium Level 3.8 Chloride Level 109 Carbon Dioxide Level 24.4 Anion Gap 10 Estimat Glomerular Filtration Rate 58 Imaging Last Impressions Chest X-Ray 05/01/18 0353 Signed Impressions: CONCLUSION: Minimal basilar atelectasis. No dense consolidation or pleural effusion. Physical Exam HEENT: Normocephalic; atraumatic CHEST: Even/unlabored CARDIAC: RRR ABDOMEN: Soft, nondistended, nontender; bowel sounds active EXTREMITIES: No clubbing, cyanosis, or edema. SKIN: Normal; no rash; no jaundice. FRONT DESK ADMIN: Alert and oriented times three. (Lynnette Brown) Assessment and Plan Plan Assessment: - Anemia- microcytic, hypochromic- reports of black stools Also complaining of generalized abdominal pain. Denies nausea, vomiting. EGD and colonoscopy at [facility] March 2016 --> Hiatal hernia. Gastritis in the antrum. Internal hemorrhoids. 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 (05/03) Pt complaining of generalized abdominal pain. Tolerating PO, denies nausea and vomiting. No BM since EGD yesterday. H/H stable overnight. 2 U PRBCs two days ago and has been stable since. EGD (05/02) Medium sized hiatal hernia. The mucosa of the stomach appeared normal. Normal duodenal mucosa in the duodenal bulb, 2nd part of the duodenum, and 3rd part of the duodenum. Plan CT abdomen and pelvis W/O IV contrast to evaluate abdominal pain Monitor H/H Notify GI if active bleeding JOHN Further recommendations based on CT findings Patient has been seen and examined by myself and Dr. Honeycutt and this note is written on his behalf (Lynnette Brown) Physician Comments Agree with the plan as above. Further recommendations to follow. (Erica Honeycutt MD) Lynnette Brown May 03, 2018 15:01 Erica Honeycutt MD May 03, 2018 15:36
[2018-05-03] MEDS: TAMSULOSIN HCL 0.4 MG CAP PO SCH (20:43)
[2018-05-04] VITALS (9 sets, daily range): BP systolic 105–185; BP diastolic 65–84; PULSE 63–81; RESP 17–18; TEMP 97.4–98.2; O2SAT 96–99
[2018-05-04] MEDS ORDERED: cloNIDine HCL 0.1 MG TAB PO ONE (05:45)
[2018-05-04 05:53] LABS: HEMATOCRIT 24.6 % (39.0-51.0); HEMOGLOBIN 7.9 GM/DL (13.0-17.0)
[2018-05-04] MEDS: RESP: ALBUTEROL 2.5 MG/IPRATROPIUM 0.5 MG NEB (SCH) NEB ×4 (08:18→19:48)
--- NOTE | 2018-05-04 08:48 | HHI.PR ---
Subjective Remarks Follow-up visit COPD exacerbation, GI bleed, anemia. Patient seen and examined today. Reports he does not have any shortness of breath or dyspnea. Remains at baseline. Asking why his hemoglobin continues to drop. Denies hematochezia , hematemesis, hematuria. Complains of abdominal bloatedness, no pain or discomfort. Denies chest pain, palpitations, fevers, chills, nausea, vomiting. Objective Vitals Vital Signs Date Time Temp Pulse Resp B/P (MAP) Pulse Ox O2 Delivery O2 Flow Rate FiO2 05/04/18 08:20 97.8 68 17 168/82 (110) 97 05/04/18 08:18 98 Nasal Cannula 1.00 05/04/18 04:00 97.7 70 18 177/84 (115) 97 05/04/18 00:00 97.5 81 18 185/78 (113) 96 05/03/18 21:18 98 Nasal Cannula 1.00 05/03/18 20:00 97.6 81 18 160/73 (102) 97 05/03/18 16:27 98 Nasal Cannula 1.00 05/03/18 16:00 97.4 82 19 147/65 (92) 97 05/03/18 12:00 97.9 82 20 156/70 (98) 96 05/03/18 09:44 98 Nasal Cannula 2.00 I/O 05/03/18 05/03/18 05/03/18 05/04/18 05/04/18 05/04/18 07:00 15:00 23:00 07:00 15:00 23:00 Intake Total 360 ml 240 ml Balance 360 ml 240 ml Intake Oral 360 ml 240 ml # Voids 3 2 2 # Bowel Movements 3 0 Result Diagram: 05/04/18 0455 05/03/18 0900 Imaging Last Impressions Chest X-Ray 05/01/18 0353 Signed Impressions: CONCLUSION: Minimal basilar atelectasis. No dense consolidation or pleural effusion. Objective Remarks GENERAL: This is a well-nourished, well-developed patient, in no apparent distress. SKIN: Warm and dry. HEENT: Normocephalic. Pupils equal round and reactive. Nose without bleeding. Airway patent. NECK: Trachea midline. CARDIOVASCULAR: Regular rate and rhythm without murmurs, gallops, or rubs. RESPIRATORY: Diminished bases. No wheezes, rales, or rhonchi. O2 nasal cannula present. GASTROINTESTINAL: Abdomen soft, non-tender, nondistended. Bowel Sounds normoactive x4. MUSCULOSKELETAL: Extremities without clubbing, cyanosis, or edema. NEUROLOGICAL: Awake and alert. Oriented to place, person. No focal neuro deficit. Moves all extremities. Normal speech. A/P Problem List: (1) GI bleed ICD Code: K92.2 - Gastrointestinal hemorrhage, unspecified Status: Acute (2) Symptomatic anemia ICD Code: D64.9 - Anemia, unspecified Status: Acute (3) COPD (chronic obstructive pulmonary disease) ICD Code: J44.9 - Chronic obstructive pulmonary disease, unspecified Assessment and Plan 77-year-old male with a PMH of HTN, COPD and CVA who presents the ER with complaints of generalized weakness and SOB GI bleed Symptomatic anemia -Transfuse 2 units packed RBC 05/01/18 -Continue to hold Plavix -Status post EGD 05/02/18 revealed hiatal hernia with no significant findings. GI recommends outpatient colonoscopy. -GI requested abdominal CT -H&H dropped today 7.9/24.6 Iron deficiency anemia -Start iron supplements COPD exacerbation -On continuous O2 even at home. -Continue nebulizers treatments. -P.o. prednisone, continue Symbicort, Spiriva -Respiratory status improved Labile benign hypertension, chronic -Resume home medication normal -Start clonidine 0.2 mg twice daily -Monitor BP trend Leukocytosis -Possibly stress-induced versus treatment with steroid -Resolved DVT prop SCDs, avoid anticoagulation secondary to GI bleed Discharge Planning Plan to DC home when cleared by GI. Problem Qualifiers (1) GI bleed: Qualified Codes: K92.2 - Gastrointestinal hemorrhage, unspecified Danielle Dobbins [facility] May 04, 2018 08:48
[2018-05-04] MEDS: TIOTROPIUM BROMIDE 18 MCG INH INH SCH (10:08)
[2018-05-04] MEDS: BUDESONIDE-FORMOTEROL 160/4.5 MCG INHALER INH SCH ×2 (10:10→22:28)
[2018-05-04] MEDS: cloNIDine HCL 0.2 MG TAB PO SCH ×2 (10:11→22:28)
[2018-05-04] MEDS: CITALOPRAM HYDROBROMIDE 20 MG TAB PO SCH (10:11)
[2018-05-04] MEDS: SODIUM CHLORIDE 0.9% FLUSH 10 ML FLUSH IV FLUSH SCH ×2 (10:11→22:27)
[2018-05-04] MEDS: predniSONE 20 MG TAB PO SCH (10:11)
[2018-05-04] MEDS: FERROUS SULFATE 325 MG (65 MG ELEMENTAL IRON) TAB PO SCH ×2 (13:14→16:31)
--- NOTE | 2018-05-04 13:48 | HHI.GIFU ---
Subjective Remarks Pt sitting on side of bed Had salad for lunch Reports BM, no blood Still having diffuse abdominal pain CT pending (Lynnette Brown) Objective Vitals I&O Vital Signs Date Time Temp Pulse Resp B/P (MAP) Pulse Ox O2 Delivery O2 Flow Rate FiO2 05/04/18 11:57 98.2 65 18 157/70 (99) 99 05/04/18 10:50 63 05/04/18 08:20 97.8 68 17 168/82 (110) 97 05/04/18 08:18 98 Nasal Cannula 1.00 05/04/18 04:00 97.7 70 18 177/84 (115) 97 05/04/18 00:00 97.5 81 18 185/78 (113) 96 05/03/18 21:18 98 Nasal Cannula 1.00 05/03/18 20:00 97.6 81 18 160/73 (102) 97 05/03/18 16:27 98 Nasal Cannula 1.00 05/03/18 16:00 97.4 82 19 147/65 (92) 97 I/O 05/03/18 05/03/18 05/03/18 05/04/18 05/04/18 05/04/18 06:59 14:59 22:59 06:59 14:59 22:59 Intake Total 360 ml 240 ml Output Total 450 ml Balance -90 ml 240 ml Intake Oral 360 ml 240 ml Output Urine Total 450 ml # Voids 3 2 2 # Bowel Movements 3 0 Laboratory Laboratory Tests Test 05/04/18 04:55 Hemoglobin 7.9 Hematocrit 24.6 Imaging Last Impressions Chest X-Ray 05/01/18 0353 Signed Impressions: CONCLUSION: Minimal basilar atelectasis. No dense consolidation or pleural effusion. Physical Exam HEENT: Normocephalic; atraumatic CHEST: Even/unlabored CARDIAC: RRR ABDOMEN: Soft, nondistended, nontender; bowel sounds active EXTREMITIES: No clubbing, cyanosis, or edema. SKIN: Normal; no rash; no jaundice. RETICLE PRINTER: Alert and oriented times three. (Lynnette Brown) Assessment and Plan Plan Assessment: - Anemia- microcytic, hypochromic- reports of black stools Also complaining of generalized abdominal pain. Denies nausea, vomiting. EGD and colonoscopy at [facility] March 2016 --> Hiatal hernia. Gastritis in the antrum. Internal hemorrhoids. 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 (05/03) Pt complaining of generalized abdominal pain. Tolerating PO, denies nausea and vomiting. No BM since EGD yesterday. H/H stable overnight. 2 U PRBCs two days ago and has been stable since. EGD (05/02) Medium sized hiatal hernia. The mucosa of the stomach appeared normal. Normal duodenal mucosa in the duodenal bulb, 2nd part of the duodenum, and 3rd part of the duodenum. (05/04) Continued abdominal pain, CT pending, if no acute findings, pt can follow up with GI after DC Plan CT abdomen and pelvis W/O contrast Monitor H/H Notify GI if active bleeding JOHN Further recommendations based on CT findings Patient has been seen and examined by myself and Dr. Honeycutt and this note is written on his behalf (Lynnette Brown) Physician Comments Agree with the plan as above. Will check CT results and further recommendations accordingly. (Erica Honeycutt MD) Lynnette Brown May 04, 2018 13:48 Erica Honeycutt MD May 04, 2018 23:22
[2018-05-04] MEDS ORDERED: LACTULOSE SYRUP 20 GM/30 ML CUP PO PRN (16:30)
--- NOTE | 2018-05-04 19:45 | RADRPT ---
EXAM DATE: 05/04/2018 6:52 PM EDT AGE/SEX: 77 years / Male INDICATIONS: Patient complains of abdominal pain. CLINICAL DATA: This is the patient's initial encounter. Patient reports that signs and symptoms have been present for 1 day and indicates a pain score of 3/10. MEDICAL/SURGICAL HISTORY: Cerebrovascular disease. Chronic obstructive pulmonary disease. None . RADIATION DOSE: 11.33 CTDI (mGy) COMPARISON: No prior exams available for comparison. TECHNIQUE: Multiple contiguous axial images were obtained through the abdomen. Images were obtained using multiple row detector helical technique. Using dose reduction techniques, radiation dose was ke pt as low as reasonably achievable to obtain optimal diagnostic quality images. FINDINGS: Trace pleural effusions are evident with pleural thickening on the right and minimal parenchymal garces ges. Films are previous midline hernia surgery is noted. The liver is free of focal defects Gallbladder unremarkable . Pancreas and spleen appear normal Adrenal glands appear normal Minimal bilateral renal calcifications with small 7 mm left renal cyst. Negative for perinephric stra nding. There is no adenopathy. There is no ascites Moderate vascular calcifications are noted The pelvis the bladder is distended with a prominent prostate. There is no obturator or inguinal riley opathy The abdominal matthews intact Review of bone windows reveals degenerative changes in the lower lumbar spine and both SI joints. CONCLUSION: 1. Moderate vascular calcifications without aneurysm 2. Trace pleural effusions with pleural thickening on the right and minimal parental changes right b ase. 3. Previous midline hernia surgery. 4. Negative for stone or obstruction. Lack of intravenous contrast makes exclusion pyonephritis diff icult. 5. Prominent prostate and bladder. Electronically signed by: Esvin Soto MD 05/04/2018 7:44 PM EDT
[2018-05-04] MEDS: TAMSULOSIN HCL 0.4 MG CAP PO SCH (22:28)
[2018-05-05] VITALS: BP 198/89; PULSE 71; RESP 18; TEMP 97.8; O2SAT 99
[2018-05-05] MEDS ORDERED: amLODIPine BESYLATE 5 MG TAB PO ONE (00:30)
[2018-05-05 04:00] VITALS: BP 180/77; PULSE 67; RESP 18; TEMP 98.2; O2SAT 96
[2018-05-05] MEDS ORDERED: cloNIDine HCL 0.2 MG TAB PO ONE (04:30)
[2018-05-05 05:53] LABS: HEMATOCRIT 25.3 % (39.0-51.0); HEMOGLOBIN 8.1 GM/DL (13.0-17.0)
[2018-05-05] MEDS: predniSONE 20 MG TAB PO SCH (07:42)
[2018-05-05] MEDS: cloNIDine HCL 0.2 MG TAB PO SCH (07:42)
[2018-05-05] MEDS: CITALOPRAM HYDROBROMIDE 20 MG TAB PO SCH (07:43)
[2018-05-05] MEDS: TIOTROPIUM BROMIDE 18 MCG INH INH SCH (07:44)
[2018-05-05] MEDS: BUDESONIDE-FORMOTEROL 160/4.5 MCG INHALER INH SCH (07:44)
[2018-05-05] MEDS: SODIUM CHLORIDE 0.9% FLUSH 10 ML FLUSH IV FLUSH SCH (07:45)
[2018-05-05 08:24] VITALS: BP 178/82; PULSE 62; RESP 18; TEMP 97.7; O2SAT 98
[2018-05-05 08:36] VITALS: O2SAT 96
--- NOTE | 2018-05-05 08:50 | HHI.DS ---
Discharge Summary Admission Date May 01, 2018 at 05:25 Discharge Date: May 05, 2018 Admitting Diagnosis Symptomatic anemia secondary to GI bleed (1) GI bleed ICD Code: K92.2 - Gastrointestinal hemorrhage, unspecified Status: Acute (2) Symptomatic anemia ICD Code: D64.9 - Anemia, unspecified Status: Acute (3) COPD (chronic obstructive pulmonary disease) ICD Code: J44.9 - Chronic obstructive pulmonary disease, unspecified Procedures EGD Brief History - From Admission This is a 77-year-old male with a PMH of HTN, COPD and CVA who presents the ER with complaints of generalized weakness and SOB x3 days. States symptoms have been getting progressively worse. O2 Dependent at baseline, no improvement w/ oxygen or nebulizers/MDI. Denies fever, chills, cough or chest pain. On arrival, BP 209/86, HR 64, O2 sat 92% on RA, Afebrile. Hemoglobin 6.8, producing 9.3 on 01/27/2018. Hemoccult positive on exam. Creatinine 1.31, previously 1.28 on 01/26/2018. Troponin negative. CXR with no consolidation or effusion. On exam, patient noted to have some wheezing. S/p Solu-Medrol and DuoNeb. 2u pRBC ordered in ER, pending transfusion. CBC/BMP: 05/05/18 0307 05/03/18 0900 Significant Findings Laboratory Tests Test 05/02/18 09:00 05/03/18 09:00 05/04/18 04:55 05/05/18 03:07 White Blood Count 12.7 TH/MM3 (4.0-11.0) Red Blood Count 3.61 MIL/MM3 (4.50-5.90) 3.56 MIL/MM3 (4.50-5.90) Hemoglobin 8.6 GM/DL (13.0-17.0) 8.3 GM/DL (13.0-17.0) 7.9 GM/DL (13.0-17.0) 8.1 GM/DL (13.0-17.0) Hematocrit 25.8 % (39.0-51.0) 25.9 % (39.0-51.0) 24.6 % (39.0-51.0) 25.3 % (39.0-51.0) Mean Corpuscular Volume 71.5 FL (80.0-100.0) 72.7 FL (80.0-100.0) Mean Corpuscular Hemoglobin 23.7 PG (27.0-34.0) 23.2 PG (27.0-34.0) Red Cell Distribution Width 20.6 % (11.6-17.2) 21.1 % (11.6-17.2) Neutrophils (%) (Auto) 87.3 % (16.0-70.0) 79.3 % (16.0-70.0) Lymphocytes (%) (Auto) 6.5 % (9.0-44.0) Neutrophils # (Auto) 11.1 TH/MM3 (1.8-7.7) 8.3 TH/MM3 (1.8-7.7) Lymphocytes # (Auto) 0.8 TH/MM3 (1.0-4.8) Blood Urea Nitrogen 29 MG/DL (7-18) 26 MG/DL (7-18) Creatinine 1.36 MG/DL (0.60-1.30) Random Glucose 126 MG/DL (74-106) 107 MG/DL (74-106) Aspartate Amino Transf (AST/SGOT) 11 U/L (15-37) Chloride Level 111 MEQ/L (98-107) 109 MEQ/L (98-107) Carbon Dioxide Level 20.8 MEQ/L (21.0-32.0) Estimat Glomerular Filtration Rate 51 ML/MIN (>89) 58 ML/MIN (>89) Calcium Level 8.4 MG/DL (8.5-10.1) Imaging Last Impressions Abdomen/Pelvis CT 05/04/18 1348 Signed Impressions: CONCLUSION: 1. Moderate vascular calcifications without aneurysm 2. Trace pleural effusions with pleural thickening on the right and minimal pa rental changes right base. 3. Previous midline hernia surgery. 4. Negative for stone or obstruction. Lack of intravenous contrast makes exclu marlin pyonephritis difficult. 5. Prominent prostate and bladder. Chest X-Ray 05/01/18 0353 Signed Impressions: CONCLUSION: Minimal basilar atelectasis. No dense consolidation or pleural effusion. PE at Discharge GENERAL: This is a well-nourished, well-developed patient, in no apparent distress. SKIN: Warm and dry. HEENT: Normocephalic. Pupils equal round and reactive. Nose without bleeding. Airway patent. NECK: Trachea midline. CARDIOVASCULAR: Regular rate and rhythm without murmurs, gallops, or rubs. RESPIRATORY: Diminished bases. No wheezes, rales, or rhonchi. O2 nasal cannula present. GASTROINTESTINAL: Abdomen soft, non-tender, nondistended. Bowel Sounds normoactive x4. MUSCULOSKELETAL: Extremities without clubbing, cyanosis, or edema. NEUROLOGICAL: Awake and alert. Oriented to place, person. No focal neuro deficit. Moves all extremities. Normal speech. Pt update on day of discharge Follow-up visit COPD exacerbation, GI bleed, anemia. Patient seen and examined today. Reports he has headache and nasal congestion. Otherwise denies fevers, chills, nausea, vomiting, diarrhea. Denies hematochezia, hematemesis. Discussed with patient recent results of his blood works and imaging studies. Hospital Course 77-year-old male with a PMH of HTN, COPD and CVA who presents the ER with complaints of generalized weakness and SOB. Patient was found to have COPD exacerbation. He was treated with nebulizer treatments, started on p.o. prednisone, Symbicort and Spiriva. He continues to be on O2 as patient is O2 dependent. His exacerbation has improved. His hospitalization was complicated with symptomatic anemia, GI bleed. He was transfused 2 packed RBC 05/01/18. Plavix was held secondary to this. EGD was done by CAROLYN Paul 05/02/18 revealed hiatal hernia with no significant findings. GI recommends outpatient colonoscopy for him. Abdominal CT was done and showed moderate vascular calcifications without aneurysm. Trace pleural effusions with pleural thickening on the right and minimal parental changes right base.Previous midline hernia surgery.Negative for stone or obstruction. Lack of intravenous contrast makes exclusion pyonephritis difficult. Prominent prostate and bladder. He was started on iron supplements secondary to iron deficiency. Patient is also labile BP work and clonidine 0.2 mg twice daily was added and Norvasc 10 mg was added on his regimen. His H&H is stable for now. Follow-up with GI in the outpatient setting for colonoscopy. Follow-up with primary care doctor for management of his COPD and blood pressure. Patient has met maximal benefits of hospitalization. Clinically stable for discharge. Pt Condition on Discharge: Stable Discharge Disposition: Discharge Home Discharge Time: <= 30 minutes Discharge Instructions DIET: Follow Instructions for: Heart Healthy Diet Activities you can perform: Regular-No Restrictions Activities to Avoid: Driving for 24 hrs Follow up Referrals: Gastroenterology - 3-5 Days @ [facility] with Erica Honeycutt MD PCP Follow-up - 2-3 Days New Medications: Cetirizine (Cetirizine) 10 Mg Tab 10 MG PO DAILY for Allergies, #14 TAB Clonidine (Catapres) 0.2 Mg Tab 0.2 MG PO Q12HR for Blood Pressure Management, #60 TAB Ferrous Sulfate (Ferosul) 325 Mg (65 Mg Iron) Tablet 325 MG PO BID@12,17 for Anemia, #60 TAB Fluticasone Nasal [place] (Fluticasone Nasal [place]) 50 Mcg/Act Naspr 1 SPRAY NASAL BID for Allergies, #1 BOTTLE 50 mcg/spray Prednisone (Prednisone) 20 Mg Tab 20 MG PO DAILY for Broncospasm, #7 TAB Continued Medications: Albuterol 18 GM Inh (Ventolin Hfa 18 GM Inh) 90 Mcg/Act Aer 2 PUFF INH Q4-6H PRN for SHORTNESS OF BREATH, #1 INHALER 0 Refills Albuterol Neb (Albuterol Neb) 0.63 Mg/3 Ml Neb 0.63 MG NEB Q6HR NEB PRN for SHORTNESS OF BREATH, #100 NEBULE Amlodipine (Norvasc) 10 Mg Tab 10 MG PO DAILY for Blood Pressure Management, #30 TAB 0 Refills Citalopram (Citalopram) 10 Mg Tab 10 MG PO DAILY for Control Depression, #30 TAB 0 Refills Fish Oil-Cholecalciferol (Addison-3 Fish Oil/Vitamin) 1,000-1,000 Mg Cap 1 CAP PO DAILY for Nutritional Supplement, CAP 0 Refills Fluticasone-Vilanterol Inh (Breo Ellipta Inh) 200-25 Mcg/Act Inh 1 PUFF INH DAILY for COPD, #1 INHALER 0 Refills Use daily at the same time. Nebulizer (Nebulizer) 1 Mis Mis EA .XX DIRECTED for Breathing Treatment, #1 0 Refills Tamsulosin (Tamsulosin) 0.4 Mg Cap 0.4 MG HS for Manage Prostate Problems, #30 CAP 0 Refills Discontinued Medications: Clopidogrel (Plavix) 75 Mg Tab 75 MG PO DAILY for Blood Clot Prevention, #30 TAB 0 Refills Danielle Dobbins May 05, 2018 08:50 Deann Sparks MD May 06, 2018 18:46
[2018-05-05] MEDS ORDERED: FLUT50SP NASAL (08:53)
[2018-05-05] MEDS ORDERED: PRED20 PO (08:53)
[2018-05-05] MEDS ORDERED: CETI10 PO (08:53)
[2018-05-05] MEDS ORDERED: FERR325T20 PO (08:53)
[2018-05-05] MEDS ORDERED: CLON.2 PO (08:53)
--- NOTE | 2018-05-05 08:55 | HHI.DCPOC ---
Discharge Care Plan Diagnosis: (1) COPD (chronic obstructive pulmonary disease) (2) Symptomatic anemia (3) GI bleed Your Health Problems Are: Cough Shortness of Breath Goals to Promote Your Health * To prevent worsening of your condition and complications * To maintain your health at the optimal level Directions to Meet Your Goals Take your medications as prescribed Follow your dietary instruction Follow activity as directed Keep your appointments as scheduled Take your immunizations and boosters as scheduled If your symptoms worsen call your PCP, if no PCP go to Urgent Care Center or Emergency Room Smoking is Dangerous to Your Health. Avoid second hand smoke Call the 24-hour hour crisis hotline for domestic abuse at Danielle Dobbins May 05, 2018 08:55
[2018-05-05] MEDS ORDERED: SODIUM CHLORIDE 0.65% NASAL SPRAY 45 ML BTL EACH NARE PRN (09:00)
[2018-05-05] MEDS ORDERED: CETIRIZINE HCL 10 MG TAB PO SCH (09:00)
[2018-05-05] MEDS ORDERED: FLUTICASONE PROPIONATE 50 MCG/ACT 16 GM NASAL SPRAY NASAL SCH (09:00)
[2018-05-05 10:00] VITALS: BP 141/65
[2018-05-05 11:52] VITALS: BP 140/65; PULSE 64; RESP 18; TEMP 98.2; O2SAT 96
== END 2018-05-05 13:08 | disposition home or self-care (01) | DRG 377 ==
LOC: NEPC 03:41 → NEDA 05:25 → N06A 05:59
PROVIDERS: ADMIT Hospitalist; ATTEND Hospitalist
PROC: 30233N1 Transfusion of Nonautologous Red Blood Cells into Peripheral Vein, Percutaneous Approach (ICD-10-PCS; 2018-05-01)
PROC: 0DJ08ZZ Inspection of Upper Intestinal Tract, Via Natural or Artificial Opening Endoscopic (ICD-10-PCS; principal; 2018-05-02 12:20)
DX: K92.2 Gastrointestinal hemorrhage, unspecified (principal); J96.20 Acute and chronic respiratory failure, unspecified whether with hypoxia or hypercapnia; Z99.81 Dependence on supplemental oxygen; J44.1 Chronic obstructive pulmonary disease with (acute) exacerbation; Z68.41 Body mass index [BMI] 40.0-44.9, adult; D50.0 Iron deficiency anemia secondary to blood loss (chronic); E66.3 Overweight; I10 Essential (primary) hypertension; K57.30 Diverticulosis of large intestine without perforation or abscess without bleeding; Z86.73 Personal history of transient ischemic attack (TIA), and cerebral infarction without residual deficits; D72.829 Elevated white blood cell count, unspecified; K29.70 Gastritis, unspecified, without bleeding; K44.9 Diaphragmatic hernia without obstruction or gangrene; K64.8 Other hemorrhoids; D17.79 Benign lipomatous neoplasm of other sites; R53.1 Weakness; Z79.02 Long term (current) use of antithrombotics/antiplatelets; Z88.8 Allergy status to other drugs, medicaments and biological substances
CPT/HCPCS: 36430; 71045; 74176; 80048; 80053; 80074; 80076; 82728; 83540; 83550; 83735; 83880; 84484; 85014; 85018; 85025; 85610; 85730; 86850; 86900; 86901; 86920; 93005; 94150; 94640; 94664; 96374; C9113; J1940; J2270; J2920; J2930; J7050; J7512; P9016

== ENCOUNTER → 2018-05-19 | Outpatient (CLI) | payer MEDICARE, OTHER ==
[~2018-05-19] MED LIST changes: +CETI10 PO; +CLON.2 PO; -FERR325T18 PO; +FERR325T20 PO; +FLUT50SP NASAL; -Ipratropium Bromide NEB; -LEVA750T9 PO; +OMEGCAP PO; -PLAV75TA29 PO
[2018-05-19 10:56] LABS: AUTOMATED NEUTROPHIL # 4.6 TH/MM3 (1.8-7.7); BASOPHIL % 0.6 % (0.0-2.0); EOSINOPHIL # 0.3 TH/MM3 (0-0.4); EOSINOPHIL % 4.5 % (0.0-4.0); HEMATOCRIT 31.6 % (39.0-51.0); LYMPH % 18.8 % (9.0-44.0); LYMPHOCYTE # 1.3 TH/MM3 (1.0-4.8); MEAN CELL VOLUME 74.8 FL (80.0-100.0); MEAN CORPUSCULAR HEMOGLOBIN 23.7 PG (27.0-34.0); MEAN CORPUSCULAR HGB CONC 31.7 % (32.0-36.0); MEAN PLATELET VOLUME 9.4 FL (7.0-11.0); MONOCYTE # 0.6 TH/MM3 (0-0.9); NEUT % 67.1 % (16.0-70.0); PLATELET COUNT 304 TH/MM3 (150-450); RED BLOOD COUNT 4.22 MIL/MM3 (4.50-5.90); WHITE BLOOD COUNT 6.9 TH/MM3 (4.0-11.0)
[2018-05-19 11:10] LABS: % SATURATION IRON PROFILE 7.4 % (20-50); IRON (FE) 35 MCG/DL (65-175); TOTAL IRON BINDING CAPACITY 470 MCG/DL (250-450)
[2018-05-19 11:13] LABS: FERRITIN 15 NG/ML (26-388)
== END ==
LOC: CLAB 10:16
DX: D64.9 Anemia, unspecified (principal)
CPT/HCPCS: 36415; 82728; 83540; 83550; 85025